=== PATIENT | male | born 1960 | race Caucasian/White ===

== ENCOUNTER 2017-06-28 11:33 | Emergency (ER) | payer MEDICAID ==
[~2017-06-28] VITALS: Ht 167.6 cm; Wt 90.0 kg
[2017-06-28] MEDS ORDERED: ASPIRIN 81 MG TABLET CHEW PO ONE (12:00)
[2017-06-28] MEDS ORDERED: ALBUTEROL/IPRATROPIUM 2.5MG/0.5MG, 3 ML NPPB SCH (12:00)
[2017-06-28] MEDS ORDERED: ASPIRIN 81 MG TABLET CHEW ONE (12:01)
[2017-06-28 12:11] LABS: HEMOGLOBIN 16.9 g/dL (13.7-18.0); WHITE BLOOD COUNT 7.9 x10^3/uL (3.4-10)
[2017-06-28] MEDS ORDERED: ALBUTEROL SULFATE 2.5MG/0.5ML ONE (12:14)
[2017-06-28] MEDS ORDERED: ALBUTEROL/IPRATROPIUM 2.5MG/0.5MG, 3 ML ONE (12:15)
[2017-06-28 12:23] LABS: BLOOD UREA NITROGEN 9 mg/dL (7-18)
[2017-06-28 12:27] LABS: IS PT STATUS REG ER OR PRE ER? YES
[2017-06-28] MEDS ORDERED: ALBU8.5H8 INH (12:42)
[2017-06-28] MEDS ORDERED: LISI5TAB7 PO (12:42)
[2017-06-28] MEDS ORDERED: TIOT18CA INH (12:42)
[2017-06-28] MEDS ORDERED: BUDE10.2 INH (12:42)
[2017-06-28] MEDS ORDERED: IPRA4AER INH (12:42)
[2017-06-28] MEDS ORDERED: NITR0.4T28 SL (12:42)
[2017-06-28] MEDS ORDERED: ASPI-496 PO (12:42)
[2017-06-28] MEDS ORDERED: ATOR40TA78 PO (12:42)
[2017-06-28] MEDS ORDERED: AMIT75TA PO (12:42)
[2017-06-28 13:21] VITALS: BP 160/50
== END 2017-06-28 14:42 | disposition home or self-care (01) ==
LOC: ED 11:58
DX: J44.1 Chronic obstructive pulmonary disease with (acute) exacerbation (principal); Z87.891 Personal history of nicotine dependence; I10 Essential (primary) hypertension; Z99.81 Dependence on supplemental oxygen; E78.00 Pure hypercholesterolemia, unspecified; I25.10 Atherosclerotic heart disease of native coronary artery without angina pectoris
CPT/HCPCS: 36415; 71010; 80048; 82040; 83880; 84484; 85025; 93005; 94640; 99285; J7512; J7620

== ENCOUNTER 2018-08-23 16:22 | Inpatient (IN) | payer MEDICARE, MEDICAID ==
[~2018-08-23] VITALS: Ht 167.6 cm; Wt 91.1 kg
[~2018-08-23 16:22] MED LIST: ALBU8.5H8 INH; AMIT75TA PO; ASPI-496 PO; ATOR40TA78 PO; BUDE10.2 INH; IPRA4AER INH; LISI5TAB7 PO; NITR0.4T28 SL; TIOT18CA INH
[2018-08-23] MEDS ORDERED: methylPREDNISolone SOD SUCC 125 MG/2 ML ONE (16:25)
[2018-08-23] MEDS ORDERED: LORazepam 2 MG/ML, 1ML ONE ×2 (16:28→17:35)
[2018-08-23] MEDS ORDERED: SODIUM CHLORIDE FLUSH 10ML SYR IVF ONE (16:30)
[2018-08-23] MEDS ORDERED: PLEASE ENTER HEIGHT AND WEIGHT MC SCH (16:30)
[2018-08-23] MEDS ORDERED: methylPREDNISolone SOD SUCC 125 MG/2 ML IVP ONE (16:30)
[2018-08-23] MEDS ORDERED: LORazepam 2 MG/ML, 1ML IVP ONE (16:30)
[2018-08-23] MEDS ORDERED: ALBUTEROL/IPRATROPIUM 2.5MG/0.5MG, 3 ML ONE (16:44)
[2018-08-23] MEDS ORDERED: ALBUTEROL SULFATE 2.5MG/0.5ML ONE (16:44)
[2018-08-23] MEDS ORDERED: ALBUTEROL SULFATE 2.5 MG/3 ML NPPB ONE (16:45)
[2018-08-23] MEDS ORDERED: ALBUTEROL/IPRATROPIUM 2.5MG/0.5MG, 3 ML NEB ONE (16:45)
[2018-08-23 17:17] LABS: MEAN CORPUSCULAR HEMOGLOBIN 30.4 pg (27.5-34.5); MEAN CORPUSCULAR HGB CONC 32.9 g/dL (33.2-36.2); MEAN CORPUSCULAR VOLUME 92.5 fL (81-97); PLATELET COUNT 421 x10^3/uL (130-400); RED BLOOD COUNT 5.26 x10^6/uL (4.38-5.82); RED CELL DISTRIBUTION WIDTH 15.7 % (9.4-14.8)
[2018-08-23 17:24] LABS: ALANINE AMINOTRANSFERASE 78 U/L (12-78); ALBUMIN 3.8 g/dL (3.4-5.0); ANION GAP 9 mmol/L (5-15); CALCIUM 8.7 mg/dL (8.5-10.1); CHLORIDE 98 mmol/L (98-107); CREATININE 1.41 mg/dL (0.7-1.3)
[2018-08-23 17:28] LABS: ALKALINE PHOSPHATASE 49 U/L (45-117); BILIRUBIN,TOTAL 0.3 mg/dL (0.2-1.0); TOTAL PROTEIN 7.1 g/dL (6.4-8.2); TROPONIN I < 0.015 ng/mL (0.000-0.045)
[2018-08-23] MEDS ORDERED: DOXYCYCLINE 100 MG in DEXTROSE 5% 250 ML IV ONE (17:30)
[2018-08-23 17:36] LABS: MD YES
[2018-08-23 17:39] LABS: LYMPH#(MANUAL) 2.17 x10^3/uL (1-3.4); LYMPHS% (MANUAL) 11 % (22-44); MONOS#(MANUAL) 1.18 x10^3/uL (0.3-2.7); MONOS% (MANUAL) 6 % (2-9); SEG#(MANUAL) 16.35 x10^3/uL (1.8-6.8); SEGS% (MANUAL) 83 % (42-75)
[2018-08-23 17:40] LABS: <PLATELET ESTIMATE> INCREASED; <PLT MORPHOLOGY> NORMAL PLT MORPH; <RBC MORPHOLOGY> NORMAL
[2018-08-23] MEDS ORDERED: LORazepam 2 MG/ML, 1ML IVPush ONE (18:00)
[2018-08-23] MEDS ORDERED: SODIUM CHLORIDE 0.9% 1,000 ML IV SCH (19:42)
[2018-08-23] MEDS ORDERED: ONDANSETRON ODT 4 MG PO PRN (20:00)
[2018-08-23] MEDS ORDERED: POLYETHYLENE GLYCOL 17 GM PACKET PO PRN (20:00)
[2018-08-23] MEDS ORDERED: ALBUTEROL SULFATE 2.5 MG/3 ML NPPB PRN (20:00)
[2018-08-23] MEDS ORDERED: GABAPENTIN 300 MG CAPSULE PO PRN (20:00)
[2018-08-23] MEDS ORDERED: BISACODYL 10 MG SUPP PR PRN (20:00)
[2018-08-23] MEDS ORDERED: ONDANSETRON 2MG/ML, 2ML IVPush PRN (20:00)
[2018-08-23] MEDS ORDERED: ACETAMINOPHEN 325 MG TABLET PO PRN (20:00)
[2018-08-23] MEDS ORDERED: NITROGLYCERIN 0.4 MG BOTTLE (25 TABS) SL PRN (20:00)
[2018-08-23] MEDS ORDERED: hydrALAzine 20 MG/ML, 1ML IVPush PRN (20:00)
[2018-08-23] MEDS ORDERED: DOCUSATE 100 MG CAPSULE PO PRN (20:00)
[2018-08-23] MEDS ORDERED: LABETALOL 5MG/ML, 20ML IVPush PRN (20:00)
[2018-08-23] MEDS ORDERED: PROMETHAZINE 25 MG/ML, 1ML IM PRN (20:00)
[2018-08-23] MEDS ORDERED: methylPREDNISolone SOD SUCC 125 MG/2 ML IVPush SCH (20:00)
[2018-08-23 20:15] LABS: FREE T4 (FREE THYROXINE) 0.97 ng/dL (0.76-1.46); THYROID STIMULATING HORMONE 1.27 mIU/L (0.358-3.740)
[2018-08-23 20:27] LABS: HEMOGLOBIN A1C 6.9 % (4.2-6.3)
[2018-08-23] MEDS ORDERED: AMITRIPTYLINE 50 MG TABLET ONE (20:51)
[2018-08-23] MEDS ORDERED: AMITRIPTYLINE 25 MG TABLET ONE (20:52)
[2018-08-23] MEDS ORDERED: TEMPLATE NON-FORMULARY MED. (Ipratropium/Albuterol Sulfate (Combivent Respimat Inhal Spray INH SCH (21:00)
[2018-08-23] MEDS ORDERED: ALBUTEROL/IPRATROPIUM 2.5MG/0.5MG, 3 ML NPPB SCH (21:00)
[2018-08-23] MEDS: AMITRIPTYLINE 75 MG TABLET PO SCH (21:00)
[2018-08-23] MEDS ORDERED: BUDESONIDE 0.5 MG/2 ML INHA NPPB SCH (21:00)
[2018-08-23] MEDS: HEPARIN 5,000 UNITS/ML, 1ML SQ SCH (21:05)
[2018-08-23] MEDS: FAMOTIDINE 20 MG/2 ML IVPush SCH (21:07)
[2018-08-23] MEDS: ATORVASTATIN 40 MG TABLET PO SCH (21:10)
[2018-08-23 21:54] VITALS: BP 154/77
[2018-08-23] MEDS: ALBUTEROL/IPRATROPIUM 2.5MG/0.5MG, 3 ML NPPB SCH (23:00)
[2018-08-23] MEDS ORDERED: ALBUTEROL/IPRATROPIUM 2.5MG/0.5MG, 3 ML NPPB PRN (23:00)
[2018-08-23 23:32] LABS: MICROSCOPIC NOT IND
[2018-08-23 23:36] LABS: CULTURE INDICATED? NO
[2018-08-23] MEDS: methylPREDNISolone SOD SUCC 40 MG/ML IV SCH (23:41)
[2018-08-24] MEDS: ALBUTEROL/IPRATROPIUM 2.5MG/0.5MG, 3 ML NPPB SCH ×6 (02:09→23:35)
[2018-08-24] MEDS: DOXYCYCLINE 100 MG in DEXTROSE 5% 250 ML IV SCH ×2 (04:10→17:56)
[2018-08-24 04:27] LABS: BASOPHILS # (AUTO) 0.17 x10^3/uL (0-0.1); BASOPHILS % (AUTO) 1 % (0-1); EOSINOPHILS # (AUTO) 0.02 x10^3/uL (0-0.4); EOSINOPHILS % (AUTO) 0 % (1-7); LYMPHOCYTES # (AUTO) 0.52 x10^3/uL (1-3.4); LYMPHOCYTES % (AUTO) 4 % (22-44); MD NO; MEAN CORPUSCULAR HEMOGLOBIN 30.7 pg (27.5-34.5); MEAN CORPUSCULAR HGB CONC 33.2 g/dL (33.2-36.2); MEAN CORPUSCULAR VOLUME 92.5 fL (81-97); MEAN PLATELET VOLUME 8.5 fL (7.4-10.4); MONOCYTES # (AUTO) 0.11 x10^3/uL (0.2-0.8); MONOCYTES % (AUTO) 1 % (2-9); NEUTROPHILS # (AUTO) 12.67 x10^3/uL (1.8-6.8); NEUTROPHILS % (AUTO) 94 % (42-75); PLATELET COUNT 359 x10^3/uL (130-400); RED BLOOD COUNT 4.98 x10^6/uL (4.38-5.82); RED CELL DISTRIBUTION WIDTH 15.5 % (9.4-14.8)
[2018-08-24 04:32] LABS: ALBUMIN 2.9 g/dL (3.4-5.0); ANION GAP 7 mmol/L (5-15); CALCIUM 8.1 mg/dL (8.5-10.1); CHLORIDE 104 mmol/L (98-107)
[2018-08-24 04:37] LABS: ALANINE AMINOTRANSFERASE 61 U/L (12-78); ALKALINE PHOSPHATASE 41 U/L (45-117); BILIRUBIN,TOTAL 0.5 mg/dL (0.2-1.0); CHOL/HDL RATIO 3.2; CHOLESTEROL, TOTAL 167 mg/dL (140-239); CREATININE 0.94 mg/dL (0.7-1.3); HDL CHOL % 32 % (26-37); HDL CHOLESTEROL (DIRECT) 53 mg/dL (40-60); LDL CHOLESTEROL,CALCULATED 91 mg/dL (54-169); LDL/HDL RATIO 1.7 (0.5-3.0); TRIGLYCERIDES 117 mg/dL (50-200); VLDL CHOLESTEROL 23 mg/dL (0-25)
[2018-08-24 04:49] VITALS: BP 114/69
[2018-08-24] MEDS: HEPARIN 5,000 UNITS/ML, 1ML SQ SCH (05:02)
[2018-08-24] MEDS: methylPREDNISolone SOD SUCC 40 MG/ML IV SCH (05:02)
[2018-08-24] MEDS: FLUTICASONE/VILANTEROL 200-25MCG/INH INH SCH (08:48)
[2018-08-24] MEDS: FAMOTIDINE 20 MG/2 ML IVPush SCH (08:51)
[2018-08-24] MEDS: LISINOPRIL 5 MG TABLET PO SCH (08:51)
[2018-08-24] MEDS: ASPIRIN 81 MG TABLET CHEW PO SCH (08:51)
[2018-08-24] MEDS ORDERED: TEMPLATE NON-FORMULARY MED. (Budesonide/Formoterol Fumarate (Symbicort 160-4.5 Mcg Inhaler INH SCH (09:00)
[2018-08-24 10:19] VITALS: BP 125/64
[2018-08-24 12:12] LABS: RAPID INFLUENZA A Negative (Negative); RAPID INFLUENZA B Negative (Negative)
[2018-08-24] MEDS: ENOXAPARIN 40 MG/0.4 ML SQ SCH (13:06)
[2018-08-24 20:00] VITALS: BP 105/63
[2018-08-24] MEDS ORDERED: AMITRIPTYLINE 50 MG TABLET ONE (20:18)
[2018-08-24] MEDS: ATORVASTATIN 40 MG TABLET PO SCH (20:23)
[2018-08-24] MEDS: FAMOTIDINE 20 MG TABLET PO SCH (20:23)
[2018-08-24] MEDS: AMITRIPTYLINE 75 MG TABLET PO SCH (20:24)
[2018-08-25 02:00] VITALS: BP 106/63
[2018-08-25] MEDS: ALBUTEROL/IPRATROPIUM 2.5MG/0.5MG, 3 ML NPPB SCH ×6 (03:00→22:21)
[2018-08-25] MEDS: DOXYCYCLINE 100 MG in DEXTROSE 5% 250 ML IV SCH ×2 (05:06→16:57)
[2018-08-25 06:11] LABS: CHLORIDE 103 mmol/L (98-107)
[2018-08-25 06:13] LABS: BASOPHILS # (AUTO) 0.14 x10^3/uL (0-0.1); BASOPHILS % (AUTO) 1 % (0-1); EOSINOPHILS # (AUTO) 0.08 x10^3/uL (0-0.4); EOSINOPHILS % (AUTO) 1 % (1-7); LYMPHOCYTES # (AUTO) 2.48 x10^3/uL (1-3.4); LYMPHOCYTES % (AUTO) 18 % (22-44); MD NO; MEAN CORPUSCULAR HEMOGLOBIN 30.4 pg (27.5-34.5); MEAN CORPUSCULAR HGB CONC 32.5 g/dL (33.2-36.2); MEAN CORPUSCULAR VOLUME 93.6 fL (81-97); MEAN PLATELET VOLUME 8.9 fL (7.4-10.4); MONOCYTES # (AUTO) 0.71 x10^3/uL (0.2-0.8); MONOCYTES % (AUTO) 5 % (2-9); NEUTROPHILS # (AUTO) 10.06 x10^3/uL (1.8-6.8); NEUTROPHILS % (AUTO) 75 % (42-75); PLATELET COUNT 271 x10^3/uL (130-400); RED BLOOD COUNT 4.99 x10^6/uL (4.38-5.82); RED CELL DISTRIBUTION WIDTH 15.7 % (9.4-14.8)
[2018-08-25 06:18] LABS: ANION GAP 8 mmol/L (5-15)
[2018-08-25 06:59] VITALS: BP 129/81
[2018-08-25] MEDS: FAMOTIDINE 20 MG TABLET PO SCH ×2 (09:28→19:55)
[2018-08-25] MEDS: FLUTICASONE/VILANTEROL 200-25MCG/INH INH SCH (09:28)
[2018-08-25] MEDS: LISINOPRIL 5 MG TABLET PO SCH (09:28)
[2018-08-25] MEDS: ASPIRIN 81 MG TABLET CHEW PO SCH (09:28)
[2018-08-25 12:21] VITALS: BP 107/61
[2018-08-25] MEDS: ENOXAPARIN 40 MG/0.4 ML SQ SCH (13:54)
[2018-08-25] MEDS: ATORVASTATIN 40 MG TABLET PO SCH (19:55)
[2018-08-25] MEDS: AMITRIPTYLINE 75 MG TABLET PO SCH (19:55)
[2018-08-25 20:00] VITALS: BP 106/64
[2018-08-26 01:40] VITALS: BP 118/70
[2018-08-26] MEDS: ALBUTEROL/IPRATROPIUM 2.5MG/0.5MG, 3 ML NPPB SCH ×2 (02:27→06:49)
[2018-08-26 05:21] LABS: CHLORIDE 104 mmol/L (98-107)
[2018-08-26 05:26] LABS: ANION GAP 5 mmol/L (5-15); CALCIUM 8.2 mg/dL (8.5-10.1); CREATININE 0.78 mg/dL (0.7-1.3)
[2018-08-26] MEDS: DOXYCYCLINE 100 MG in DEXTROSE 5% 250 ML IV SCH (05:30)
[2018-08-26 06:00] LABS: BASOPHILS # (AUTO) 0.15 x10^3/uL (0-0.1); BASOPHILS % (AUTO) 1 % (0-1); EOSINOPHILS # (AUTO) 0.05 x10^3/uL (0-0.4); EOSINOPHILS % (AUTO) 0 % (1-7); LYMPHOCYTES % (AUTO) 16 % (22-44); MD NO; MEAN CORPUSCULAR HEMOGLOBIN 30.8 pg (27.5-34.5); MEAN CORPUSCULAR VOLUME 93.4 fL (81-97); MEAN PLATELET VOLUME 8.2 fL (7.4-10.4); MONOCYTES # (AUTO) 0.73 x10^3/uL (0.2-0.8); MONOCYTES % (AUTO) 6 % (2-9); NEUTROPHILS # (AUTO) 9.69 x10^3/uL (1.8-6.8); NEUTROPHILS % (AUTO) 77 % (42-75); PLATELET COUNT 264 x10^3/uL (130-400); RED BLOOD COUNT 4.56 x10^6/uL (4.38-5.82); RED CELL DISTRIBUTION WIDTH 16.3 % (9.4-14.8)
[2018-08-26 07:28] VITALS: BP 126/80
[2018-08-26] MEDS: FAMOTIDINE 20 MG TABLET PO SCH (08:39)
[2018-08-26] MEDS: ASPIRIN 81 MG TABLET CHEW PO SCH (08:39)
[2018-08-26] MEDS: LISINOPRIL 5 MG TABLET PO SCH (08:39)
[2018-08-26] MEDS: FLUTICASONE/VILANTEROL 200-25MCG/INH INH SCH (09:00)
[2018-08-26] MEDS ORDERED: FLUT1BLS INH (10:24)
[2018-08-26] MEDS ORDERED: DOXY100T PO (10:24)
[2018-08-26] MEDS ORDERED: CEFD300C37 PO (10:24)
[2018-08-26] MEDS ORDERED: PRED5TAB PO (10:24)
[2018-08-26] MEDS: ENOXAPARIN 40 MG/0.4 ML SQ SCH (13:41)
== END 2018-08-26 15:00 | DRG 682 ==
LOC: ED 17:16 → EDIP 17:27 → CCU 19:25 → 4EST 08-24 09:51
PROVIDERS: ADMIT Internal Medicine; ATTEND Family Medicine
PROC: 5A09357 Assistance with Respiratory Ventilation, Less than 24 Consecutive Hours, Continuous Positive Airway Pressure (ICD-10-PCS; principal; 2018-08-23)
DX: N17.0 Acute kidney failure with tubular necrosis (principal); J96.20 Acute and chronic respiratory failure, unspecified whether with hypoxia or hypercapnia; J18.9 Pneumonia, unspecified organism; J44.1 Chronic obstructive pulmonary disease with (acute) exacerbation; J44.0 Chronic obstructive pulmonary disease with (acute) lower respiratory infection; E78.00 Pure hypercholesterolemia, unspecified; E78.5 Hyperlipidemia, unspecified; F12.10 Cannabis abuse, uncomplicated; F17.210 Nicotine dependence, cigarettes, uncomplicated; I11.9 Hypertensive heart disease without heart failure; I25.10 Atherosclerotic heart disease of native coronary artery without angina pectoris; Z95.5 Presence of coronary angioplasty implant and graft; Z99.81 Dependence on supplemental oxygen; Z79.899 Other long term (current) drug therapy; Z79.82 Long term (current) use of aspirin; Z71.6 Tobacco abuse counseling
CPT/HCPCS: 36415; 36600; 71045; 80048; 80053; 80061; 81003; 82803; 83036; 83735; 83880; 84100; 84439; 84443; 84484; 85025; 87070; 87081; 87205; 87400; 93005; 93306; 94640; 94660; 96365; 96375; 96376; 99291; G0378; J1644; J1650; J7060; J7620; J2060; J2920; J2930; J7030; J7512; S0028

== ENCOUNTER 2018-09-13 14:24 | Inpatient (IN) | payer MEDICARE, MEDICAID ==
[~2018-09-13] VITALS: Ht 180.3 cm; Wt 85.6 kg
[~2018-09-13 14:24] MED LIST changes: +CEFD300C37 PO; +DOXY100T PO; +FLUT1BLS INH; +PRED5TAB PO
[2018-09-13] MEDS ORDERED: MAGNESIUM SULFATE PMX 2GM/50ML 50 ML IV ONE (15:00)
[2018-09-13] MEDS ORDERED: LORazepam 2 MG/ML, 1ML IVP ONE (15:00)
[2018-09-13] MEDS ORDERED: methylPREDNISolone SOD SUCC 125 MG/2 ML IVP ONE (15:00)
[2018-09-13] MEDS ORDERED: ALBUTEROL SULFATE 2.5 MG/3 ML NPPB SCH (15:00)
[2018-09-13] MEDS ORDERED: SODIUM CHLORIDE FLUSH 10ML SYR IVF ONE (15:00)
[2018-09-13 15:22] LABS: BASOPHILS # (AUTO) 0.02 x10^3/uL (0-0.1); BASOPHILS % (AUTO) 0 % (0-1); EOSINOPHILS # (AUTO) 0.19 x10^3/uL (0-0.4); EOSINOPHILS % (AUTO) 2 % (1-7); LYMPHOCYTES # (AUTO) 1.22 x10^3/uL (1-3.4); LYMPHOCYTES % (AUTO) 11 % (22-44); MD NO; MEAN CORPUSCULAR HGB CONC 33.5 g/dL (33.2-36.2); MEAN CORPUSCULAR VOLUME 92.5 fL (81-97); MEAN PLATELET VOLUME 8.7 fL (7.4-10.4); MONOCYTES # (AUTO) 0.63 x10^3/uL (0.2-0.8); MONOCYTES % (AUTO) 6 % (2-9); NEUTROPHILS # (AUTO) 8.95 x10^3/uL (1.8-6.8); NEUTROPHILS % (AUTO) 81 % (42-75); PLATELET COUNT 371 x10^3/uL (130-400); RED BLOOD COUNT 4.52 x10^6/uL (4.38-5.82); RED CELL DISTRIBUTION WIDTH 14.8 % (9.4-14.8)
[2018-09-13 15:35] LABS: ALBUMIN 2.9 g/dL (3.4-5.0); ANION GAP 8 mmol/L (5-15); CALCIUM 8.3 mg/dL (8.5-10.1); CHLORIDE 105 mmol/L (98-107)
[2018-09-13 15:39] LABS: TROPONIN I < 0.015 ng/mL (0.000-0.045)
[2018-09-13] MEDS ORDERED: SODIUM CHLORIDE 0.9% 1,000 ML IV SCH (15:45)
[2018-09-13] MEDS ORDERED: (Ipratropium/Albuterol Sulfate (Combivent Respimat Inhal Spray INH SCH (16:00)
[2018-09-13] MEDS ORDERED: ONDANSETRON ODT 4 MG PO PRN (16:00)
[2018-09-13] MEDS ORDERED: ENALAPRILAT 1.25 MG/ML, 2ML IVPush PRN (16:00)
[2018-09-13] MEDS ORDERED: LABETALOL 5MG/ML, 20ML IVPush PRN (16:00)
[2018-09-13] MEDS ORDERED: BISACODYL 10 MG SUPP PR PRN (16:00)
[2018-09-13] MEDS: methylPREDNISolone SOD SUCC 125 MG/2 ML IVPush SCH ×2 (16:00→21:39)
[2018-09-13] MEDS ORDERED: ONDANSETRON 2MG/ML, 2ML IVPush PRN (16:00)
[2018-09-13] MEDS ORDERED: ACETAMINOPHEN 325 MG TABLET PO PRN (16:00)
[2018-09-13] MEDS ORDERED: ONDANSETRON 2MG/ML, 2ML ONE (16:15)
[2018-09-13] MEDS ORDERED: MORPHINE SULFATE 4 MG/ML, 1ML ONE ×2 (16:15→16:57)
[2018-09-13] MEDS: MORPHINE SULFATE 4 MG/ML, 1ML IVPush PRN ×2 (16:17→17:00)
[2018-09-13] MEDS ORDERED: ONDANSETRON 2MG/ML, 2ML IVPush ONE (16:30)
[2018-09-13] MEDS: DOXYCYCLINE 100 MG in DEXTROSE 5% 250 ML IV SCH (17:00)
[2018-09-13] MEDS: ENOXAPARIN 40 MG/0.4 ML SQ SCH (17:42)
[2018-09-13] MEDS: FAMOTIDINE 20 MG TABLET PO SCH (20:06)
[2018-09-13] MEDS: ATORVASTATIN 40 MG TABLET PO SCH (20:06)
[2018-09-13] MEDS: AMITRIPTYLINE 75 MG TABLET PO SCH (20:07)
[2018-09-13] MEDS: ALBUTEROL/IPRATROPIUM 2.5MG/0.5MG, 3 ML NPPB SCH (20:31)
[2018-09-13 22:00] VITALS: BP 96/56
[2018-09-14] MEDS: OXYcodone IR 5MG TABLET PO PRN ×3 (00:07→12:25)
[2018-09-14] MEDS: DOXYCYCLINE 100 MG in DEXTROSE 5% 250 ML IV SCH ×2 (03:41→16:39)
[2018-09-14] MEDS: methylPREDNISolone SOD SUCC 125 MG/2 ML IVPush SCH ×4 (03:47→21:49)
[2018-09-14 04:24] LABS: MEAN CORPUSCULAR HEMOGLOBIN 31.4 pg (27.5-34.5); MEAN CORPUSCULAR HGB CONC 33.7 g/dL (33.2-36.2); MEAN CORPUSCULAR VOLUME 93.1 fL (81-97); MEAN PLATELET VOLUME 9.1 fL (7.4-10.4); PLATELET COUNT 347 x10^3/uL (130-400); RED BLOOD COUNT 4.03 x10^6/uL (4.38-5.82)
[2018-09-14 04:33] LABS: ALANINE AMINOTRANSFERASE 50 U/L (12-78); ALBUMIN 2.4 g/dL (3.4-5.0); ANION GAP 6 mmol/L (5-15); CALCIUM 7.8 mg/dL (8.5-10.1); CHLORIDE 106 mmol/L (98-107); CREATININE 0.77 mg/dL (0.7-1.3)
[2018-09-14 04:35] LABS: ALKALINE PHOSPHATASE 66 U/L (45-117); BILIRUBIN,TOTAL 0.2 mg/dL (0.2-1.0); TOTAL PROTEIN 6.2 g/dL (6.4-8.2)
[2018-09-14 04:51] LABS: BASOPHILS # (AUTO) 0.03 x10^3/uL (0-0.1); BASOPHILS % (AUTO) 0 % (0-1); EOSINOPHILS % (AUTO) 0 % (1-7); LYMPHOCYTES % (AUTO) 4 % (22-44); MD SCAN; MONOCYTES # (AUTO) 0.09 x10^3/uL (0.2-0.8); MONOCYTES % (AUTO) 1 % (2-9); NEUTROPHILS # (AUTO) 6.47 x10^3/uL (1.8-6.8); NEUTROPHILS % (AUTO) 94 % (42-75)
[2018-09-14] MEDS: ALBUTEROL/IPRATROPIUM 2.5MG/0.5MG, 3 ML NPPB SCH ×5 (06:00→19:28)
[2018-09-14 07:45] VITALS: BP 110/74
[2018-09-14] MEDS ORDERED: FLUTICASONE/VILANTEROL 100-25MCG/INH INH SCH (09:00)
[2018-09-14] MEDS ORDERED: IPRATROPIUM 0.5 MG/2.5 ML INHA NPPB SCH (09:00)
[2018-09-14] MEDS: SENNA/DOCUSATE TABLET PO SCH (09:30)
[2018-09-14] MEDS: ASPIRIN 81 MG TABLET CHEW PO SCH (09:30)
[2018-09-14] MEDS: LISINOPRIL 5 MG TABLET PO SCH (09:31)
[2018-09-14] MEDS: FAMOTIDINE 20 MG TABLET PO SCH ×2 (09:31→21:48)
[2018-09-14] MEDS: FLUTICASONE/VILANTEROL 200-25MCG/INH INH SCH (10:33)
[2018-09-14 12:15] VITALS: BP 103/64
[2018-09-14] MEDS: ENOXAPARIN 40 MG/0.4 ML SQ SCH (16:39)
[2018-09-14 19:25] VITALS: BP 98/65
[2018-09-14] MEDS: AMITRIPTYLINE 75 MG TABLET PO SCH (21:48)
[2018-09-14] MEDS: ATORVASTATIN 40 MG TABLET PO SCH (21:48)
[2018-09-15] MEDS: OXYcodone IR 5MG TABLET PO PRN ×5 (00:06→21:19)
[2018-09-15 02:59] VITALS: BP 94/58
[2018-09-15] MEDS: methylPREDNISolone SOD SUCC 125 MG/2 ML IVPush SCH ×4 (04:24→21:10)
[2018-09-15] MEDS: DOXYCYCLINE 100MG TABLET PO SCH ×2 (04:24→15:45)
[2018-09-15] MEDS: ALBUTEROL/IPRATROPIUM 2.5MG/0.5MG, 3 ML NPPB SCH ×4 (07:05→19:35)
[2018-09-15 07:12] VITALS: BP 108/68
[2018-09-15] MEDS: LISINOPRIL 5 MG TABLET PO SCH (09:22)
[2018-09-15] MEDS: FAMOTIDINE 20 MG TABLET PO SCH ×2 (09:22→21:10)
[2018-09-15] MEDS: ASPIRIN 81 MG TABLET CHEW PO SCH (09:22)
[2018-09-15] MEDS: SENNA/DOCUSATE TABLET PO SCH (09:23)
[2018-09-15] MEDS: FLUTICASONE/VILANTEROL 200-25MCG/INH INH SCH (09:26)
[2018-09-15 13:05] VITALS: BP 137/78
[2018-09-15] MEDS: ENOXAPARIN 40 MG/0.4 ML SQ SCH (15:45)
[2018-09-15 20:00] VITALS: BP 93/50
[2018-09-15] MEDS: AMITRIPTYLINE 75 MG TABLET PO SCH (21:10)
[2018-09-15] MEDS: ATORVASTATIN 40 MG TABLET PO SCH (21:10)
[2018-09-15] MEDS: POLYETHYLENE GLYCOL 17 GM PACKET PO PRN (21:19)
[2018-09-16 01:45] VITALS: BP 112/82
[2018-09-16] MEDS: methylPREDNISolone SOD SUCC 125 MG/2 ML IVPush SCH ×4 (03:58→21:40)
[2018-09-16] MEDS: DOXYCYCLINE 100MG TABLET PO SCH ×2 (03:58→15:53)
[2018-09-16] MEDS: OXYcodone IR 5MG TABLET PO PRN ×4 (04:06→21:39)
[2018-09-16] MEDS: ALBUTEROL/IPRATROPIUM 2.5MG/0.5MG, 3 ML NPPB SCH ×5 (06:59→22:00)
[2018-09-16 07:19] VITALS: BP 108/62
[2018-09-16] MEDS: SENNA/DOCUSATE TABLET PO SCH (08:48)
[2018-09-16] MEDS: FAMOTIDINE 20 MG TABLET PO SCH ×2 (08:48→21:40)
[2018-09-16] MEDS: FLUTICASONE/VILANTEROL 200-25MCG/INH INH SCH (08:48)
[2018-09-16] MEDS: LISINOPRIL 5 MG TABLET PO SCH (08:48)
[2018-09-16] MEDS: ASPIRIN 81 MG TABLET CHEW PO SCH (08:48)
[2018-09-16 13:14] VITALS: BP 120/68
[2018-09-16] MEDS: ENOXAPARIN 40 MG/0.4 ML SQ SCH (15:53)
[2018-09-16] MEDS: POLYETHYLENE GLYCOL 17 GM PACKET PO PRN (16:00)
[2018-09-16] MEDS: FUROSEMIDE 40 MG/4 ML IV SCH (16:34)
[2018-09-16 20:00] VITALS: BP 119/61
[2018-09-16] MEDS: AMITRIPTYLINE 75 MG TABLET PO SCH (21:39)
[2018-09-16] MEDS: ATORVASTATIN 40 MG TABLET PO SCH (21:40)
[2018-09-17 02:00] VITALS: BP 112/64
[2018-09-17] MEDS: methylPREDNISolone SOD SUCC 125 MG/2 ML IVPush SCH ×5 (04:27→21:59)
[2018-09-17] MEDS: OXYcodone IR 5MG TABLET PO PRN ×3 (04:27→21:59)
[2018-09-17] MEDS: DOXYCYCLINE 100MG TABLET PO SCH (04:27)
[2018-09-17 07:36] VITALS: BP 121/68
[2018-09-17] MEDS: FUROSEMIDE 40 MG/4 ML IV SCH (08:14)
[2018-09-17] MEDS: SENNA/DOCUSATE TABLET PO SCH (08:52)
[2018-09-17] MEDS: ASPIRIN 81 MG TABLET CHEW PO SCH (08:53)
[2018-09-17] MEDS: FAMOTIDINE 20 MG TABLET PO SCH ×2 (08:53→21:59)
[2018-09-17] MEDS: LISINOPRIL 5 MG TABLET PO SCH (08:54)
[2018-09-17] MEDS: ALBUTEROL/IPRATROPIUM 2.5MG/0.5MG, 3 ML NPPB SCH ×5 (08:55→22:00)
[2018-09-17] MEDS: FLUTICASONE/VILANTEROL 200-25MCG/INH INH SCH (08:56)
[2018-09-17] MEDS: POLYETHYLENE GLYCOL 17 GM PACKET PO PRN (16:09)
[2018-09-17] MEDS: ENOXAPARIN 40 MG/0.4 ML SQ SCH (16:09)
[2018-09-17 20:00] VITALS: BP 102/61
[2018-09-17] MEDS: ATORVASTATIN 40 MG TABLET PO SCH (21:59)
[2018-09-17] MEDS: AMITRIPTYLINE 75 MG TABLET PO SCH (21:59)
[2018-09-18 02:00] VITALS: BP 127/78
[2018-09-18] MEDS: methylPREDNISolone SOD SUCC 125 MG/2 ML IVPush SCH ×3 (05:02→19:15)
[2018-09-18] MEDS: ALBUTEROL/IPRATROPIUM 2.5MG/0.5MG, 3 ML NPPB SCH ×5 (06:00→20:05)
[2018-09-18 07:45] VITALS: BP 102/68
[2018-09-18] MEDS: LISINOPRIL 5 MG TABLET PO SCH (09:00)
[2018-09-18] MEDS: FLUTICASONE/VILANTEROL 200-25MCG/INH INH SCH (11:59)
[2018-09-18] MEDS: FAMOTIDINE 20 MG TABLET PO SCH ×2 (11:59→19:15)
[2018-09-18] MEDS: SENNA/DOCUSATE TABLET PO SCH (12:00)
[2018-09-18] MEDS: AZITHROMYCIN 500 MG TABLET PO SCH (12:00)
[2018-09-18] MEDS: ASPIRIN 81 MG TABLET CHEW PO SCH (12:01)
[2018-09-18 13:41] VITALS: BP 113/69
[2018-09-18] MEDS: ENOXAPARIN 40 MG/0.4 ML SQ SCH (16:00)
[2018-09-18] MEDS: ATORVASTATIN 40 MG TABLET PO SCH (19:15)
[2018-09-18] MEDS: AMITRIPTYLINE 75 MG TABLET PO SCH (19:15)
[2018-09-18 20:00] VITALS: BP 112/69
[2018-09-19] MEDS: methylPREDNISolone SOD SUCC 125 MG/2 ML IVPush SCH ×2 (00:48→09:03)
[2018-09-19] MEDS: POLYETHYLENE GLYCOL 17 GM PACKET PO PRN ×2 (01:01→09:05)
[2018-09-19 01:06] VITALS: BP 121/73
[2018-09-19] MEDS: ALBUTEROL/IPRATROPIUM 2.5MG/0.5MG, 3 ML NPPB SCH ×3 (07:35→14:00)
[2018-09-19 07:42] VITALS: BP 126/75
[2018-09-19] MEDS: LISINOPRIL 5 MG TABLET PO SCH (09:01)
[2018-09-19] MEDS: FLUTICASONE/VILANTEROL 200-25MCG/INH INH SCH (09:02)
[2018-09-19] MEDS: LORazepam 2 MG/ML, 1ML IVPush PRN ×2 (09:03→13:48)
[2018-09-19] MEDS: ASPIRIN 81 MG TABLET CHEW PO SCH (09:03)
[2018-09-19] MEDS: FAMOTIDINE 20 MG TABLET PO SCH (09:03)
[2018-09-19] MEDS: AZITHROMYCIN 500 MG TABLET PO SCH (09:03)
[2018-09-19] MEDS: SENNA/DOCUSATE TABLET PO SCH (09:06)
[2018-09-19] MEDS ORDERED: methylPREDNISolone SOD SUCC 125 MG/2 ML IVPush SCH (10:30)
[2018-09-19] MEDS ORDERED: SERTRALINE 50MG TABLET PO SCH (12:00)
[2018-09-19 13:07] VITALS: BP 109/65
[2018-09-19] MEDS ORDERED: ONDA4TAB13 PO (15:41)
[2018-09-19] MEDS ORDERED: TRAM50TA2 PO (15:41)
[2018-09-19] MEDS ORDERED: IPRA3AMP30 NPPB (15:41)
[2018-09-19] MEDS ORDERED: SERT50TA5 PO (15:41)
[2018-09-19] MEDS ORDERED: AZIT500T5 PO (15:41)
[2018-09-19] MEDS ORDERED: FAMO20TA7 PO (15:41)
[2018-09-19] MEDS ORDERED: PRED10TA PO (15:41)
[2018-09-19] MEDS ORDERED: ALBUTEROL/IPRATROPIUM 2.5MG/0.5MG, 3 ML NPPB PRN (16:30)
== END 2018-09-19 16:30 | DRG 189 ==
LOC: ED 15:52 → EDIP 15:55 → ICU 18:21 → 3NE 09-14 11:28
PROVIDERS: ADMIT Internal Medicine; ATTEND Family Medicine
PROC: 5A09357 Assistance with Respiratory Ventilation, Less than 24 Consecutive Hours, Continuous Positive Airway Pressure (ICD-10-PCS; principal; 2018-09-13)
DX: J96.21 Acute and chronic respiratory failure with hypoxia (principal); J44.1 Chronic obstructive pulmonary disease with (acute) exacerbation; R45.851 Suicidal ideations; J96.22 Acute and chronic respiratory failure with hypercapnia; I10 Essential (primary) hypertension; E78.5 Hyperlipidemia, unspecified; E66.9 Obesity, unspecified; F17.200 Nicotine dependence, unspecified, uncomplicated; F32.9 Major depressive disorder, single episode, unspecified; I25.10 Atherosclerotic heart disease of native coronary artery without angina pectoris; Z59.0 Homelessness; Z82.49 Family history of ischemic heart disease and other diseases of the circulatory system; Z95.5 Presence of coronary angioplasty implant and graft; Z99.81 Dependence on supplemental oxygen; Z68.26 Body mass index [BMI] 26.0-26.9, adult
CPT/HCPCS: 36415; 36600; 71045; 80048; 80053; 82040; 82565; 82803; 83605; 84484; 85025; 87040; 87081; 93005; 94640; 99285; G0378; J1650; J1940; J2405; J7060; J7620; J2060; J2930; J3475; J7030; J7512

== ENCOUNTER 2018-09-13 14:26 | Emergency (ER) | payer MEDICARE, MEDICAID ==
[2018-09-13] MEDS ORDERED: ALBUTEROL/IPRATROPIUM 2.5MG/0.5MG, 3 ML ONE (14:30)
[2018-09-13] MEDS ORDERED: LIDOCAINE-MPF 1%, 5ML ONE (14:30)
[2018-09-13] MEDS ORDERED: LORazepam 2 MG/ML, 1ML ONE ×2 (14:39→14:55)
[2018-09-13] MEDS ORDERED: methylPREDNISolone SOD SUCC 125 MG/2 ML ONE (14:41)
== END 2018-09-13 14:29 | disposition home or self-care (01) ==
LOC: ED 14:26
DX: J44.1 Chronic obstructive pulmonary disease with (acute) exacerbation (principal); E78.00 Pure hypercholesterolemia, unspecified; I25.10 Atherosclerotic heart disease of native coronary artery without angina pectoris; I10 Essential (primary) hypertension
CPT/HCPCS: 36680; 94660; 99291

== ENCOUNTER 2018-09-19 13:57 | Inpatient (IN) | payer MEDICARE, MEDICAID ==
[~2018-09-19] VITALS: Ht 167.6 cm; Wt 86.9 kg
[2018-09-19] MEDS ORDERED: BISACODYL 10 MG SUPP PR PRN (15:00)
[2018-09-19] MEDS ORDERED: ONDANSETRON ODT 4 MG PO PRN (15:00)
[2018-09-19] MEDS ORDERED: DOCUSATE 100 MG CAPSULE PO PRN (15:00)
[2018-09-19] MEDS ORDERED: AZIT500T5 PO (15:41)
[2018-09-19] MEDS ORDERED: IPRA3AMP30 NPPB (15:41)
[2018-09-19] MEDS ORDERED: SERT50TA5 PO (15:41)
[2018-09-19] MEDS ORDERED: PRED10TA PO (15:41)
[2018-09-19] MEDS ORDERED: ONDA4TAB13 PO (15:41)
[2018-09-19] MEDS ORDERED: TRAM50TA2 PO (15:41)
[2018-09-19] MEDS ORDERED: FAMO20TA7 PO (15:41)
[2018-09-19 17:00] VITALS: BP 117/68
[2018-09-19 17:43] VITALS: BP 117/68
[2018-09-19] MEDS ORDERED: ALBUTEROL SULFATE 2.5 MG/3 ML NPPB SCH ×2 (18:00)
[2018-09-19] MEDS ORDERED: BUDESONIDE 0.5 MG/2 ML INHA NPPB SCH (18:00)
[2018-09-19] MEDS ORDERED: ALBUTEROL/IPRATROPIUM 2.5MG/0.5MG, 3 ML NPPB PRN (18:00)
[2018-09-19] MEDS: ALBUTEROL/IPRATROPIUM 2.5MG/0.5MG, 3 ML NPPB SCH (18:05)
[2018-09-19 19:39] VITALS: BP 104/68
[2018-09-19] MEDS ORDERED: AZITHROMYCIN 500 MG TABLET PO SCH (20:00)
[2018-09-19] MEDS: FAMOTIDINE 20 MG TABLET PO SCH (20:59)
[2018-09-19] MEDS: ATORVASTATIN 40 MG TABLET PO SCH (20:59)
[2018-09-19] MEDS: AMITRIPTYLINE 75 MG TABLET PO SCH (20:59)
[2018-09-20 05:59] LABS: HCT (SEDRATE) 44.8 % (39.2-51.8)
[2018-09-20] MEDS: ASPIRIN 81 MG TABLET EC PO SCH (06:28)
[2018-09-20 06:31] LABS: CHOL/HDL RATIO 2.8; LDL/HDL RATIO 1.2 (0.5-3.0); THYROID STIMULATING HORMONE 0.129 mIU/L (0.358-3.740)
[2018-09-20] MEDS: ALBUTEROL/IPRATROPIUM 2.5MG/0.5MG, 3 ML NPPB SCH ×4 (07:00→20:00)
[2018-09-20 07:21] VITALS: BP 121/77
[2018-09-20] MEDS: FAMOTIDINE 20 MG TABLET PO SCH ×2 (08:38→21:08)
[2018-09-20] MEDS: SENNA/DOCUSATE TABLET PO SCH (08:38)
[2018-09-20] MEDS: LISINOPRIL 5 MG TABLET PO SCH (08:38)
[2018-09-20] MEDS: AZITHROMYCIN 500 MG TABLET PO SCH (08:38)
[2018-09-20] MEDS ORDERED: FLUTICASONE/VILANTEROL 200-25MCG/INH INH SCH (09:00)
[2018-09-20] MEDS: ACETAMINOPHEN 325 MG TABLET PO PRN (13:32)
[2018-09-20] MEDS: METOPROLOL TARTRATE 25 MG TABLET PO SCH (17:36)
[2018-09-20 19:32] VITALS: BP 111/69
[2018-09-20] MEDS: AMITRIPTYLINE 75 MG TABLET PO SCH (21:08)
[2018-09-20] MEDS: ATORVASTATIN 40 MG TABLET PO SCH (21:08)
[2018-09-21] MEDS: ASPIRIN 81 MG TABLET EC PO SCH (06:15)
[2018-09-21] MEDS: METOPROLOL TARTRATE 25 MG TABLET PO SCH ×2 (06:16→18:07)
[2018-09-21] MEDS: ALBUTEROL/IPRATROPIUM 2.5MG/0.5MG, 3 ML NPPB SCH ×4 (07:30→19:09)
[2018-09-21 07:57] VITALS: BP 110/74
[2018-09-21] MEDS: SERTRALINE 50MG TABLET PO SCH (08:03)
[2018-09-21] MEDS: LISINOPRIL 5 MG TABLET PO SCH (08:04)
[2018-09-21] MEDS: ACETAMINOPHEN 325 MG TABLET PO PRN (08:04)
[2018-09-21] MEDS: AZITHROMYCIN 500 MG TABLET PO SCH (08:04)
[2018-09-21] MEDS: SENNA/DOCUSATE TABLET PO SCH (08:12)
[2018-09-21] MEDS: FAMOTIDINE 20 MG TABLET PO SCH ×2 (08:12→21:01)
[2018-09-21 14:08] LABS: MICROSCOPIC INDICATED
[2018-09-21 14:09] LABS: CULTURE INDICATED? NO
[2018-09-21 20:11] VITALS: BP 115/73
[2018-09-21] MEDS: AMITRIPTYLINE 75 MG TABLET PO SCH (21:01)
[2018-09-21] MEDS: ATORVASTATIN 40 MG TABLET PO SCH (21:01)
[2018-09-22] MEDS: ASPIRIN 81 MG TABLET EC PO SCH (06:07)
[2018-09-22] MEDS: METOPROLOL TARTRATE 25 MG TABLET PO SCH ×2 (06:07→17:47)
[2018-09-22 07:52] VITALS: BP 116/76
[2018-09-22] MEDS: AZITHROMYCIN 500 MG TABLET PO SCH (08:23)
[2018-09-22] MEDS: LISINOPRIL 5 MG TABLET PO SCH (08:23)
[2018-09-22] MEDS: SERTRALINE 50MG TABLET PO SCH (08:24)
[2018-09-22] MEDS: ALBUTEROL/IPRATROPIUM 2.5MG/0.5MG, 3 ML NPPB SCH ×4 (08:35→20:00)
[2018-09-22] MEDS: SENNA/DOCUSATE TABLET PO SCH (09:36)
[2018-09-22] MEDS: FAMOTIDINE 20 MG TABLET PO SCH ×2 (09:36→20:26)
[2018-09-22 17:40] VITALS: BP 116/74
[2018-09-22 19:34] VITALS: BP 105/69
[2018-09-22] MEDS: ATORVASTATIN 40 MG TABLET PO SCH (20:26)
[2018-09-22] MEDS ORDERED: TRAZODONE 50MG TABLET PO SCH (21:00)
[2018-09-23] MEDS: METOPROLOL TARTRATE 25 MG TABLET PO SCH ×2 (06:00→20:23)
[2018-09-23] MEDS: ASPIRIN 81 MG TABLET EC PO SCH (06:00)
[2018-09-23 07:49] VITALS: BP 98/67
[2018-09-23] MEDS: ALBUTEROL/IPRATROPIUM 2.5MG/0.5MG, 3 ML NPPB SCH ×4 (08:10→19:56)
[2018-09-23] MEDS: AZITHROMYCIN 500 MG TABLET PO SCH (09:14)
[2018-09-23] MEDS: SERTRALINE 50MG TABLET PO SCH (09:15)
[2018-09-23] MEDS: LISINOPRIL 5 MG TABLET PO SCH (09:15)
[2018-09-23] MEDS: SENNA/DOCUSATE TABLET PO SCH (09:16)
[2018-09-23] MEDS: FAMOTIDINE 20 MG TABLET PO SCH ×2 (09:16→20:23)
[2018-09-23 19:26] VITALS: BP 117/75
[2018-09-23] MEDS: ATORVASTATIN 40 MG TABLET PO SCH (20:24)
[2018-09-23] MEDS ORDERED: TRAZODONE 100MG TABLET PO SCH (21:00)
[2018-09-24] MEDS: ASPIRIN 81 MG TABLET EC PO SCH (06:06)
[2018-09-24] MEDS: METOPROLOL TARTRATE 25 MG TABLET PO SCH ×2 (06:08→18:25)
[2018-09-24] MEDS: ALBUTEROL/IPRATROPIUM 2.5MG/0.5MG, 3 ML NPPB SCH ×2 (07:00→09:45)
[2018-09-24 07:59] VITALS: BP 102/67
[2018-09-24] MEDS: LISINOPRIL 5 MG TABLET PO SCH (08:11)
[2018-09-24] MEDS: FAMOTIDINE 20 MG TABLET PO SCH ×2 (08:11→20:15)
[2018-09-24] MEDS: SERTRALINE 50MG TABLET PO SCH (08:11)
[2018-09-24] MEDS: AZITHROMYCIN 500 MG TABLET PO SCH (08:11)
[2018-09-24] MEDS: SENNA/DOCUSATE TABLET PO SCH (08:12)
[2018-09-24 18:23] VITALS: BP 105/63
[2018-09-24 20:02] VITALS: BP 114/71
[2018-09-24] MEDS: TRAZODONE 150MG TABLET PO SCH (20:15)
[2018-09-24] MEDS: POLYETHYLENE GLYCOL 17 GM PACKET PO PRN (20:15)
[2018-09-24] MEDS: ATORVASTATIN 40 MG TABLET PO SCH (20:17)
[2018-09-25] MEDS: METOPROLOL TARTRATE 25 MG TABLET PO SCH ×2 (05:51→18:19)
[2018-09-25] MEDS: ASPIRIN 81 MG TABLET EC PO SCH (05:51)
[2018-09-25 05:56] VITALS: BP 103/59
[2018-09-25 07:36] VITALS: BP 102/65
[2018-09-25] MEDS: SERTRALINE 50MG TABLET PO SCH (08:28)
[2018-09-25] MEDS: LISINOPRIL 5 MG TABLET PO SCH (08:28)
[2018-09-25] MEDS: FAMOTIDINE 20 MG TABLET PO SCH ×2 (08:28→21:18)
[2018-09-25] MEDS: SENNA/DOCUSATE TABLET PO SCH (08:28)
[2018-09-25 18:19] VITALS: BP 108/68
[2018-09-25] MEDS: POLYETHYLENE GLYCOL 17 GM PACKET PO PRN (18:37)
[2018-09-25 19:36] VITALS: BP 115/71
[2018-09-25] MEDS: ATORVASTATIN 40 MG TABLET PO SCH (21:18)
[2018-09-25] MEDS: TRAZODONE 150MG TABLET PO SCH (21:18)
[2018-09-26] MEDS: METOPROLOL TARTRATE 25 MG TABLET PO SCH ×2 (06:00→18:14)
[2018-09-26] MEDS: ASPIRIN 81 MG TABLET EC PO SCH (06:00)
[2018-09-26 07:55] VITALS: BP 104/69
[2018-09-26] MEDS: SENNA/DOCUSATE TABLET PO SCH (09:00)
[2018-09-26] MEDS: FAMOTIDINE 20 MG TABLET PO SCH ×2 (09:00→20:11)
[2018-09-26] MEDS: LISINOPRIL 5 MG TABLET PO SCH (09:07)
[2018-09-26] MEDS: SERTRALINE 50MG TABLET PO SCH (09:07)
[2018-09-26 18:12] VITALS: BP 108/63
[2018-09-26 19:28] VITALS: BP 114/69
[2018-09-26] MEDS: TRAZODONE 150MG TABLET PO SCH (20:12)
[2018-09-26] MEDS: ATORVASTATIN 40 MG TABLET PO SCH (20:12)
[2018-09-27] MEDS: METOPROLOL TARTRATE 25 MG TABLET PO SCH ×2 (06:23→18:26)
[2018-09-27] MEDS: ASPIRIN 81 MG TABLET EC PO SCH (06:24)
[2018-09-27 07:23] VITALS: BP 109/77
[2018-09-27] MEDS: ACETAMINOPHEN 325 MG TABLET PO PRN (07:58)
[2018-09-27] MEDS: SERTRALINE 50MG TABLET PO SCH (08:56)
[2018-09-27] MEDS: SENNA/DOCUSATE TABLET PO SCH (08:56)
[2018-09-27] MEDS: LISINOPRIL 5 MG TABLET PO SCH (08:57)
[2018-09-27] MEDS: FAMOTIDINE 20 MG TABLET PO SCH ×2 (08:58→20:21)
[2018-09-27] MEDS: LIDODERM 5% PATCH TD SCH (12:01)
[2018-09-27 19:11] VITALS: BP 118/75
[2018-09-27] MEDS: ATORVASTATIN 40 MG TABLET PO SCH (20:21)
[2018-09-27] MEDS: TRAZODONE 150MG TABLET PO SCH (20:21)
[2018-09-27] MEDS: LIDODERM REMOVE PATCH NOTE XX SCH (22:49)
[2018-09-28 07:20] VITALS: BP 107/63
[2018-09-28] MEDS: ASPIRIN 81 MG TABLET EC PO SCH (07:54)
[2018-09-28] MEDS: METOPROLOL TARTRATE 25 MG TABLET PO SCH ×2 (07:54→20:29)
[2018-09-28] MEDS: FAMOTIDINE 20 MG TABLET PO SCH ×2 (07:57→20:29)
[2018-09-28] MEDS: LISINOPRIL 5 MG TABLET PO SCH (07:57)
[2018-09-28] MEDS: SERTRALINE 50MG TABLET PO SCH (07:58)
[2018-09-28] MEDS: SENNA/DOCUSATE TABLET PO SCH (07:58)
[2018-09-28] MEDS: LIDODERM REMOVE PATCH NOTE XX SCH ×2 (07:59→22:58)
[2018-09-28] MEDS: LIDODERM 5% PATCH TD SCH (11:06)
[2018-09-28 19:55] VITALS: BP 122/73
[2018-09-28] MEDS: ATORVASTATIN 40 MG TABLET PO SCH (20:28)
[2018-09-28] MEDS: TRAZODONE 150MG TABLET PO SCH (20:29)
[2018-09-29] MEDS: ASPIRIN 81 MG TABLET EC PO SCH (05:38)
[2018-09-29] MEDS: METOPROLOL TARTRATE 25 MG TABLET PO SCH ×2 (05:39→17:19)
[2018-09-29 05:41] VITALS: BP 109/69
[2018-09-29 08:04] VITALS: BP 105/72
[2018-09-29] MEDS: LISINOPRIL 5 MG TABLET PO SCH (08:16)
[2018-09-29] MEDS: SERTRALINE 50MG TABLET PO SCH (08:16)
[2018-09-29] MEDS: FAMOTIDINE 20 MG TABLET PO SCH ×2 (08:16→21:17)
[2018-09-29] MEDS: SENNA/DOCUSATE TABLET PO SCH ×2 (08:16→08:20)
[2018-09-29] MEDS: ACETAMINOPHEN 325 MG TABLET PO PRN ×2 (08:19→16:12)
[2018-09-29] MEDS: LIDODERM REMOVE PATCH NOTE XX SCH (11:00)
[2018-09-29 19:37] VITALS: BP 117/71
[2018-09-29] MEDS: TRAZODONE 150MG TABLET PO SCH (21:16)
[2018-09-29] MEDS: ATORVASTATIN 40 MG TABLET PO SCH (21:16)
[2018-09-30 05:39] VITALS: BP 111/70
[2018-09-30] MEDS: ASPIRIN 81 MG TABLET EC PO SCH (05:45)
[2018-09-30] MEDS: METOPROLOL TARTRATE 25 MG TABLET PO SCH (05:45)
[2018-09-30 07:52] VITALS: BP 103/70
[2018-09-30] MEDS: SERTRALINE 50MG TABLET PO SCH (08:05)
[2018-09-30] MEDS: SENNA/DOCUSATE TABLET PO SCH (08:05)
[2018-09-30] MEDS: LISINOPRIL 5 MG TABLET PO SCH (08:06)
[2018-09-30] MEDS: FAMOTIDINE 20 MG TABLET PO SCH (08:07)
[2018-10-01] MEDS ORDERED: UMEC1DIS INH (18:18)
== END 2018-09-30 09:30 | disposition home or self-care (01) | DRG 885 ==
LOC: 3E 16:58
PROVIDERS: ADMIT Counselor Mental Health; ATTEND Counselor Mental Health
DX: F33.2 Major depressive disorder, recurrent severe without psychotic features (principal); J96.10 Chronic respiratory failure, unspecified whether with hypoxia or hypercapnia; R45.851 Suicidal ideations; Z99.81 Dependence on supplemental oxygen; I10 Essential (primary) hypertension; E78.5 Hyperlipidemia, unspecified; F11.90 Opioid use, unspecified, uncomplicated; I25.10 Atherosclerotic heart disease of native coronary artery without angina pectoris; Z95.5 Presence of coronary angioplasty implant and graft; E66.9 Obesity, unspecified; Z68.30 Body mass index [BMI] 30.0-30.9, adult; G47.00 Insomnia, unspecified; J44.9 Chronic obstructive pulmonary disease, unspecified; K21.9 Gastro-esophageal reflux disease without esophagitis; K59.00 Constipation, unspecified; Z79.82 Long term (current) use of aspirin; Z79.899 Other long term (current) drug therapy; Z87.891 Personal history of nicotine dependence; Z90.49 Acquired absence of other specified parts of digestive tract; Z83.6 Family history of other diseases of the respiratory system
CPT/HCPCS: 36415; 80061; 81001; 82140; 82607; 84436; 84443; 85651; 86592; 94640; J7613; J7620; J7626; 92523-GN; J7512

== ENCOUNTER 2018-10-01 16:27 | Inpatient (IN) | payer MEDICARE, MEDICAID ==
[~2018-10-01] VITALS: Ht 167.6 cm; Wt 90.2 kg
[~2018-10-01 16:27] MED LIST changes: +AZIT500T5 PO; +FAMO20TA7 PO; +IPRA3AMP30 NPPB; +ONDA4TAB13 PO; +PRED10TA PO; +SERT50TA5 PO; +TRAM50TA2 PO
[2018-10-01] MEDS ORDERED: methylPREDNISolone SOD SUCC 125 MG/2 ML ONE (16:37)
[2018-10-01] MEDS ORDERED: ALBUTEROL/IPRATROPIUM 2.5MG/0.5MG, 3 ML ONE ×2 (16:40→16:46)
[2018-10-01 16:50] LABS: MEAN CORPUSCULAR HEMOGLOBIN 30.5 pg (27.5-34.5); MEAN CORPUSCULAR HGB CONC 32.9 g/dL (33.2-36.2); MEAN CORPUSCULAR VOLUME 92.7 fL (81-97); MEAN PLATELET VOLUME 8.2 fL (7.4-10.4); PLATELET COUNT 340 x10^3/uL (130-400); RED BLOOD COUNT 5.04 x10^6/uL (4.38-5.82); RED CELL DISTRIBUTION WIDTH 15.5 % (9.4-14.8)
[2018-10-01] MEDS ORDERED: LORazepam 2 MG/ML, 1ML ONE ×2 (16:53→17:11)
[2018-10-01] MEDS ORDERED: ALBUTEROL/IPRATROPIUM 2.5MG/0.5MG, 3 ML NPPB ONE (17:00)
[2018-10-01] MEDS ORDERED: LORazepam 2 MG/ML, 1ML IVPush ONE (17:00)
[2018-10-01] MEDS ORDERED: SODIUM CHLORIDE FLUSH 10ML SYR IVF ONE (17:00)
[2018-10-01] MEDS ORDERED: methylPREDNISolone SOD SUCC 125 MG/2 ML IVP ONE (17:00)
[2018-10-01] MEDS ORDERED: MAGNESIUM SULFATE PMX 2GM/50ML 50 ML IVPB ONE (17:00)
[2018-10-01 17:01] LABS: ALBUMIN 3.7 g/dL (3.4-5.0); ANION GAP 6 mmol/L (5-15); CALCIUM 8.9 mg/dL (8.5-10.1); CHLORIDE 102 mmol/L (98-107); CREATININE 0.96 mg/dL (0.7-1.3)
[2018-10-01 17:14] LABS: BASOPHILS # (AUTO) 0.15 x10^3/uL (0-0.1); BASOPHILS % (AUTO) 1 % (0-1); EOSINOPHILS % (AUTO) 0 % (1-7); LYMPHOCYTES % (AUTO) 14 % (22-44); MD SCAN; MONOCYTES # (AUTO) 1.53 x10^3/uL (0.2-0.8); MONOCYTES % (AUTO) 7 % (2-9); NEUTROPHILS % (AUTO) 78 % (42-75)
[2018-10-01] MEDS ORDERED: ALBUTEROL 0.5%, 20ML ONE (17:45)
[2018-10-01] MEDS ORDERED: KETOROLAC 30 MG/1 ML ONE (18:06)
[2018-10-01 18:07] LABS: TROPONIN I 0.034 ng/mL (0.000-0.045)
[2018-10-01] MEDS ORDERED: UMEC1DIS INH (18:18)
[2018-10-01] MEDS ORDERED: KETOROLAC 30 MG/1 ML IVPush ONE (18:30)
[2018-10-01] MEDS ORDERED: SODIUM CHLORIDE FLUSH 10ML SYR IVF PRN (19:00)
[2018-10-01] MEDS ORDERED: SODIUM CHLORIDE 0.9% 1,000 ML IV SCH (19:11)
[2018-10-01] MEDS ORDERED: ONDANSETRON 2MG/ML, 2ML IVPush PRN (19:30)
[2018-10-01] MEDS ORDERED: NITROGLYCERIN 0.4 MG BOTTLE (25 TABS) SL PRN (19:30)
[2018-10-01] MEDS: AMITRIPTYLINE 75 MG TABLET PO SCH (22:05)
[2018-10-01] MEDS: ATORVASTATIN 40 MG TABLET PO SCH (22:05)
[2018-10-01] MEDS: methylPREDNISolone SOD SUCC 40 MG/ML IVPush SCH (22:06)
[2018-10-01] MEDS: ENOXAPARIN 40 MG/0.4 ML SQ SCH (22:06)
[2018-10-01] MEDS: FAMOTIDINE 20 MG TABLET PO SCH (22:06)
[2018-10-01] MEDS ORDERED: ALBUTEROL SULFATE 2.5 MG/3 ML ONE (22:28)
[2018-10-01] MEDS ORDERED: ALBUTEROL SULFATE 2.5 MG/3 ML NPPB PRN (22:30)
[2018-10-01] MEDS ORDERED: ALBUTEROL SULFATE 2.5 MG/3 ML NPPB SCH (23:00)
[2018-10-02] MEDS: methylPREDNISolone SOD SUCC 40 MG/ML IVPush SCH ×4 (03:16→20:03)
[2018-10-02] MEDS: ACETAMINOPHEN 325 MG TABLET PO PRN ×3 (03:19→20:03)
[2018-10-02 04:00] VITALS: BP 117/55
[2018-10-02 04:38] LABS: MEAN CORPUSCULAR HEMOGLOBIN 31.1 pg (27.5-34.5); MEAN CORPUSCULAR HGB CONC 33.5 g/dL (33.2-36.2); MEAN CORPUSCULAR VOLUME 92.8 fL (81-97); MEAN PLATELET VOLUME 8.8 fL (7.4-10.4); PLATELET COUNT 289 x10^3/uL (130-400); RED BLOOD COUNT 4.22 x10^6/uL (4.38-5.82); RED CELL DISTRIBUTION WIDTH 15.6 % (9.4-14.8)
[2018-10-02 04:45] LABS: ANION GAP 12 mmol/L (5-15); CALCIUM 8.3 mg/dL (8.5-10.1); CHLORIDE 104 mmol/L (98-107); CREATININE 1.18 mg/dL (0.7-1.3)
[2018-10-02 04:58] LABS: BASOPHILS # (AUTO) 0.08 x10^3/uL (0-0.1); BASOPHILS % (AUTO) 1 % (0-1); EOSINOPHILS % (AUTO) 0 % (1-7); LYMPHOCYTES # (AUTO) 0.39 x10^3/uL (1-3.4); LYMPHOCYTES % (AUTO) 2 % (22-44); MD SCAN; MONOCYTES % (AUTO) 1 % (2-9); NEUTROPHILS % (AUTO) 97 % (42-75)
[2018-10-02] MEDS: ALBUTEROL/IPRATROPIUM 2.5MG/0.5MG, 3 ML NPPB SCH ×4 (06:35→19:32)
[2018-10-02] MEDS: ASPIRIN 81 MG TABLET EC PO SCH (08:51)
[2018-10-02] MEDS: SERTRALINE 50MG TABLET PO SCH (08:51)
[2018-10-02] MEDS: LISINOPRIL 5 MG TABLET PO SCH (08:52)
[2018-10-02] MEDS: (Umeclidinium Brm/Vilanterol Tr (Anoro Ellipta 62.5-25 Mcg Inh INH SCH (08:52)
[2018-10-02] MEDS: FAMOTIDINE 20 MG TABLET PO SCH ×2 (08:52→20:25)
[2018-10-02 13:34] VITALS: BP 116/75
[2018-10-02] MEDS: INSULIN LISPRO 100 UNITS/ML, PEN SQ-INSULIN SCH ×2 (18:04→20:25)
[2018-10-02] MEDS: metFORMIN 500 MG TABLET PO SCH (18:04)
[2018-10-02 19:12] VITALS: BP 94/54
[2018-10-02] MEDS: ENOXAPARIN 40 MG/0.4 ML SQ SCH (20:02)
[2018-10-02] MEDS: AMITRIPTYLINE 75 MG TABLET PO SCH ×3 (20:03→21:00)
[2018-10-02] MEDS: ATORVASTATIN 40 MG TABLET PO SCH (20:03)
[2018-10-02 20:27] VITALS: BP 101/58
[2018-10-03 01:42] VITALS: BP 90/53
[2018-10-03] MEDS: methylPREDNISolone SOD SUCC 40 MG/ML IVPush SCH ×4 (02:19→23:26)
[2018-10-03] MEDS: ACETAMINOPHEN 325 MG TABLET PO PRN (02:20)
[2018-10-03] MEDS: ALBUTEROL/IPRATROPIUM 2.5MG/0.5MG, 3 ML NPPB SCH ×4 (06:37→19:41)
[2018-10-03] MEDS: INSULIN LISPRO 100 UNITS/ML, PEN SQ-INSULIN SCH ×4 (07:00→21:16)
[2018-10-03 07:09] VITALS: BP 99/61
[2018-10-03] MEDS: SERTRALINE 50MG TABLET PO SCH (07:44)
[2018-10-03] MEDS: ASPIRIN 81 MG TABLET EC PO SCH (07:44)
[2018-10-03] MEDS: metFORMIN 500 MG TABLET PO SCH ×2 (07:45→16:50)
[2018-10-03] MEDS: LISINOPRIL 5 MG TABLET PO SCH (07:45)
[2018-10-03] MEDS: FAMOTIDINE 20 MG TABLET PO SCH ×2 (07:45→21:13)
[2018-10-03] MEDS: (Umeclidinium Brm/Vilanterol Tr (Anoro Ellipta 62.5-25 Mcg Inh INH SCH (07:46)
[2018-10-03 12:22] VITALS: BP 91/48
[2018-10-03] MEDS: KETOROLAC 30 MG/1 ML IVPush PRN (16:50)
[2018-10-03 20:00] VITALS: BP 133/72
[2018-10-03] MEDS: AMITRIPTYLINE 75 MG TABLET PO SCH (21:00)
[2018-10-03] MEDS ORDERED: AMITRIPTYLINE 25 MG TABLET ONE (21:08)
[2018-10-03] MEDS ORDERED: AMITRIPTYLINE 50 MG TABLET ONE (21:08)
[2018-10-03] MEDS: ATORVASTATIN 40 MG TABLET PO SCH (21:13)
[2018-10-03] MEDS: ENOXAPARIN 40 MG/0.4 ML SQ SCH (21:16)
[2018-10-04 02:00] VITALS: BP 154/73
[2018-10-04] MEDS: KETOROLAC 30 MG/1 ML IVPush PRN (04:25)
[2018-10-04] MEDS: methylPREDNISolone SOD SUCC 40 MG/ML IVPush SCH ×3 (04:38→16:56)
[2018-10-04 05:24] LABS: MEAN CORPUSCULAR HGB CONC 33.6 g/dL (33.2-36.2); MEAN CORPUSCULAR VOLUME 92.4 fL (81-97); MEAN PLATELET VOLUME 8.9 fL (7.4-10.4); PLATELET COUNT 246 x10^3/uL (130-400); RED BLOOD COUNT 4.21 x10^6/uL (4.38-5.82); RED CELL DISTRIBUTION WIDTH 15.6 % (9.4-14.8)
[2018-10-04 05:30] LABS: CHLORIDE 106 mmol/L (98-107)
[2018-10-04 05:38] LABS: ANION GAP 7 mmol/L (5-15); CALCIUM 8.8 mg/dL (8.5-10.1); CREATININE 0.85 mg/dL (0.7-1.3)
[2018-10-04 06:01] LABS: BASOPHILS # (AUTO) 0.13 x10^3/uL (0-0.1); BASOPHILS % (AUTO) 1 % (0-1); EOSINOPHILS % (AUTO) 0 % (1-7); LYMPHOCYTES % (AUTO) 3 % (22-44); MD SCAN; MONOCYTES # (AUTO) 0.29 x10^3/uL (0.2-0.8); MONOCYTES % (AUTO) 1 % (2-9); NEUTROPHILS # (AUTO) 19.67 x10^3/uL (1.8-6.8); NEUTROPHILS % (AUTO) 95 % (42-75)
[2018-10-04] MEDS: INSULIN LISPRO 100 UNITS/ML, PEN SQ-INSULIN SCH ×4 (07:00→20:56)
[2018-10-04] MEDS: ALBUTEROL/IPRATROPIUM 2.5MG/0.5MG, 3 ML NPPB SCH ×4 (07:58→19:05)
[2018-10-04 08:00] VITALS: BP 137/72
[2018-10-04] MEDS: SERTRALINE 50MG TABLET PO SCH (08:05)
[2018-10-04] MEDS: metFORMIN 500 MG TABLET PO SCH ×2 (08:05→16:56)
[2018-10-04] MEDS: ASPIRIN 81 MG TABLET EC PO SCH (08:05)
[2018-10-04] MEDS: FAMOTIDINE 20 MG TABLET PO SCH ×2 (08:05→20:56)
[2018-10-04] MEDS: LISINOPRIL 5 MG TABLET PO SCH (08:06)
[2018-10-04] MEDS: (Umeclidinium Brm/Vilanterol Tr (Anoro Ellipta 62.5-25 Mcg Inh INH SCH (09:00)
[2018-10-04] MEDS ORDERED: FLUTICASONE/VILANTEROL 100-25MCG/INH INH SCH (12:00)
[2018-10-04] MEDS: BUDESONIDE 0.5 MG/2 ML INHA INH SCH ×2 (12:00→19:05)
[2018-10-04] MEDS: GUAIFENESIN ER 600 MG TABLET PO SCH ×2 (12:20→20:56)
[2018-10-04] MEDS: DOXYCYCLINE 100 MG in DEXTROSE 5% 250 ML IV SCH (12:53)
[2018-10-04 13:20] VITALS: BP 104/57
[2018-10-04 14:03] LABS: RAPID INFLUENZA A Negative (Negative); RAPID INFLUENZA B Negative (Negative)
[2018-10-04 20:08] VITALS: BP 114/68
[2018-10-04] MEDS: ENOXAPARIN 40 MG/0.4 ML SQ SCH (20:55)
[2018-10-04] MEDS: ATORVASTATIN 40 MG TABLET PO SCH (20:56)
[2018-10-04] MEDS: AMITRIPTYLINE 75 MG TABLET PO SCH (20:56)
[2018-10-04] MEDS: ACETAMINOPHEN 325 MG TABLET PO PRN (20:56)
[2018-10-05] MEDS: DOXYCYCLINE 100 MG in DEXTROSE 5% 250 ML IV SCH ×2 (00:32→13:02)
[2018-10-05] MEDS: methylPREDNISolone SOD SUCC 40 MG/ML IVPush SCH ×3 (00:32→12:30)
[2018-10-05] MEDS: ACETAMINOPHEN 325 MG TABLET PO PRN ×2 (01:47→08:10)
[2018-10-05 01:54] VITALS: BP 122/75
[2018-10-05 05:20] LABS: ANION GAP 7 mmol/L (5-15); CALCIUM 8.9 mg/dL (8.5-10.1); CHLORIDE 103 mmol/L (98-107)
[2018-10-05 05:23] LABS: CREATININE 0.99 mg/dL (0.7-1.3)
[2018-10-05 05:54] LABS: BASOPHILS # (AUTO) 0.05 x10^3/uL (0-0.1); BASOPHILS % (AUTO) 0 % (0-1); EOSINOPHILS # (AUTO) 0.12 x10^3/uL (0-0.4); EOSINOPHILS % (AUTO) 1 % (1-7); LYMPHOCYTES % (AUTO) 2 % (22-44); MD NO; MEAN CORPUSCULAR HGB CONC 33.2 g/dL (33.2-36.2); MEAN CORPUSCULAR VOLUME 93.4 fL (81-97); MONOCYTES # (AUTO) 0.55 x10^3/uL (0.2-0.8); MONOCYTES % (AUTO) 3 % (2-9); NEUTROPHILS # (AUTO) 16.64 x10^3/uL (1.8-6.8); NEUTROPHILS % (AUTO) 94 % (42-75); PLATELET COUNT 259 x10^3/uL (130-400); RED CELL DISTRIBUTION WIDTH 15.8 % (9.4-14.8)
[2018-10-05] MEDS: BUDESONIDE 0.5 MG/2 ML INHA INH SCH ×2 (06:30→18:24)
[2018-10-05] MEDS: ALBUTEROL/IPRATROPIUM 2.5MG/0.5MG, 3 ML NPPB SCH ×4 (06:30→18:24)
[2018-10-05] MEDS: INSULIN LISPRO 100 UNITS/ML, PEN SQ-INSULIN SCH ×4 (07:00→21:05)
[2018-10-05 07:25] VITALS: BP 110/66
[2018-10-05] MEDS: LISINOPRIL 5 MG TABLET PO SCH (08:10)
[2018-10-05] MEDS: ASPIRIN 81 MG TABLET EC PO SCH (08:10)
[2018-10-05] MEDS: GUAIFENESIN ER 600 MG TABLET PO SCH ×2 (08:10→20:54)
[2018-10-05] MEDS: SERTRALINE 50MG TABLET PO SCH (08:10)
[2018-10-05] MEDS: FAMOTIDINE 20 MG TABLET PO SCH ×2 (08:10→20:54)
[2018-10-05] MEDS: metFORMIN 500 MG TABLET PO SCH ×2 (08:10→18:19)
[2018-10-05] MEDS: (Umeclidinium Brm/Vilanterol Tr (Anoro Ellipta 62.5-25 Mcg Inh INH SCH (09:00)
[2018-10-05] MEDS ORDERED: GUAIFENESIN/COD200MG-20MG/10ML LIQUID PO PRN (11:30)
[2018-10-05] MEDS ORDERED: methylPREDNISolone SOD SUCC 125 MG/2 ML ONE ×2 (12:49→16:12)
[2018-10-05 14:00] VITALS: BP 117/68
[2018-10-05 19:56] VITALS: BP 120/69
[2018-10-05] MEDS: ATORVASTATIN 40 MG TABLET PO SCH (20:54)
[2018-10-05] MEDS: AMITRIPTYLINE 75 MG TABLET PO SCH (20:54)
[2018-10-05] MEDS: ENOXAPARIN 40 MG/0.4 ML SQ SCH (20:54)
[2018-10-05] MEDS: DOXYCYCLINE 100MG CAP PO SCH (20:55)
[2018-10-06 02:00] VITALS: BP 120/73
[2018-10-06 03:50] VITALS: BP 122/72
[2018-10-06 05:44] LABS: BASOPHILS # (AUTO) 0.35 x10^3/uL (0-0.1); BASOPHILS % (AUTO) 3 % (0-1); EOSINOPHILS # (AUTO) 0.01 x10^3/uL (0-0.4); EOSINOPHILS % (AUTO) 0 % (1-7); LYMPHOCYTES # (AUTO) 1.25 x10^3/uL (1-3.4); LYMPHOCYTES % (AUTO) 9 % (22-44); MD NO; MEAN CORPUSCULAR HEMOGLOBIN 30.7 pg (27.5-34.5); MEAN CORPUSCULAR HGB CONC 32.9 g/dL (33.2-36.2); MEAN CORPUSCULAR VOLUME 93.5 fL (81-97); MEAN PLATELET VOLUME 9.1 fL (7.4-10.4); MONOCYTES # (AUTO) 0.61 x10^3/uL (0.2-0.8); MONOCYTES % (AUTO) 4 % (2-9); NEUTROPHILS % (AUTO) 84 % (42-75); PLATELET COUNT 237 x10^3/uL (130-400); RED BLOOD COUNT 4.39 x10^6/uL (4.38-5.82); RED CELL DISTRIBUTION WIDTH 16.1 % (9.4-14.8)
[2018-10-06 05:55] LABS: ANION GAP 6 mmol/L (5-15); CALCIUM 8.3 mg/dL (8.5-10.1); CHLORIDE 103 mmol/L (98-107)
[2018-10-06 05:56] LABS: CREATININE 0.73 mg/dL (0.7-1.3)
[2018-10-06] MEDS: BUDESONIDE 0.5 MG/2 ML INHA INH SCH (06:40)
[2018-10-06] MEDS: ALBUTEROL/IPRATROPIUM 2.5MG/0.5MG, 3 ML NPPB SCH ×2 (06:40→10:15)
[2018-10-06] MEDS: INSULIN LISPRO 100 UNITS/ML, PEN SQ-INSULIN SCH ×2 (07:00→12:04)
[2018-10-06 07:35] VITALS: BP 122/62
[2018-10-06] MEDS: DOXYCYCLINE 100MG CAP PO SCH (08:27)
[2018-10-06] MEDS: (Umeclidinium Brm/Vilanterol Tr (Anoro Ellipta 62.5-25 Mcg Inh INH SCH (08:27)
[2018-10-06] MEDS: ASPIRIN 81 MG TABLET EC PO SCH (08:27)
[2018-10-06] MEDS: metFORMIN 500 MG TABLET PO SCH (08:27)
[2018-10-06] MEDS: SERTRALINE 50MG TABLET PO SCH (08:28)
[2018-10-06] MEDS: GUAIFENESIN ER 600 MG TABLET PO SCH (08:28)
[2018-10-06] MEDS: LISINOPRIL 5 MG TABLET PO SCH (08:28)
[2018-10-06] MEDS: FAMOTIDINE 20 MG TABLET PO SCH (08:28)
[2018-10-06 13:20] VITALS: BP 150/69
[2018-10-06] MEDS ORDERED: DOXY100C2 PO (14:30)
[2018-10-06] MEDS ORDERED: PRED10TA PO (14:30)
[2018-10-06] MEDS ORDERED: METF500T PO (14:30)
[2018-10-06 15:47] LABS: HEMOGLOBIN A1C 7.7 % (4.2-6.3)
== END 2018-10-06 15:53 | disposition home or self-care (01) | DRG 189 ==
LOC: ED 18:18 → EDIP 18:39 → CCU 20:15 → 3NE 10-02 12:58 → DCLOUNGE 10-06 15:49
PROVIDERS: ADMIT Hospitalist; ATTEND Hospitalist
PROC: 5A09357 Assistance with Respiratory Ventilation, Less than 24 Consecutive Hours, Continuous Positive Airway Pressure (ICD-10-PCS; principal; 2018-10-01)
DX: J96.21 Acute and chronic respiratory failure with hypoxia (principal); J44.1 Chronic obstructive pulmonary disease with (acute) exacerbation; J98.11 Atelectasis; I10 Essential (primary) hypertension; E11.9 Type 2 diabetes mellitus without complications; I25.10 Atherosclerotic heart disease of native coronary artery without angina pectoris; Z95.5 Presence of coronary angioplasty implant and graft; E66.9 Obesity, unspecified; F32.9 Major depressive disorder, single episode, unspecified; Z91.19 Patient's noncompliance with other medical treatment and regimen; Z90.49 Acquired absence of other specified parts of digestive tract; E78.5 Hyperlipidemia, unspecified; Z91.5 Personal history of self-harm; Z59.0 Homelessness; E78.00 Pure hypercholesterolemia, unspecified; F12.10 Cannabis abuse, uncomplicated; F41.9 Anxiety disorder, unspecified; Z87.891 Personal history of nicotine dependence; Z99.81 Dependence on supplemental oxygen
CPT/HCPCS: 36415; 36600; 71045; 80048; 82040; 82803; 82962; 83036; 83735; 84100; 84484; 85025; 87081; 87400; 93005; 94640; 94660; 96365; 96366; 96375; 99291; G0378; J1650; J1885; J7060; J7613; J7620; J7626; J1815; J2060; J2920; J2930; J3475; J7030; J7512

== ENCOUNTER 2018-12-01 15:03 | Inpatient (IN) | payer MEDICARE, MEDICAID ==
[~2018-12-01] VITALS: Ht 167.6 cm; Wt 91.0 kg
[~2018-12-01 15:03] MED LIST changes: +DOXY100C2 PO; +METF500T PO; +SERT50TA28 PO; -SERT50TA5 PO; +UMEC1DIS INH
[2018-12-01] MEDS ORDERED: PLEASE ENTER HEIGHT AND WEIGHT MC SCH (15:30)
[2018-12-01] MEDS ORDERED: methylPREDNISolone SOD SUCC 125 MG/2 ML IVP ONE (15:30)
[2018-12-01] MEDS ORDERED: ALBUTEROL/IPRATROPIUM 2.5MG/0.5MG, 3 ML NPPB SCH (15:30)
[2018-12-01] MEDS ORDERED: SODIUM CHLORIDE FLUSH 10ML SYR IVF ONE (15:30)
[2018-12-01] MEDS ORDERED: UMEC1DIS INH (15:45)
[2018-12-01 15:48] LABS: BASOPHILS # (AUTO) 0.01 x10^3/uL (0-0.1); BASOPHILS % (AUTO) 0 % (0-1); EOSINOPHILS # (AUTO) 0.13 x10^3/uL (0-0.4); EOSINOPHILS % (AUTO) 1 % (1-7); LYMPHOCYTES % (AUTO) 14 % (22-44); MD NO; MEAN CORPUSCULAR HEMOGLOBIN 30.2 pg (27.5-34.5); MEAN CORPUSCULAR HGB CONC 31.5 g/dL (33.2-36.2); MEAN PLATELET VOLUME 9.1 fL (7.4-10.4); MONOCYTES # (AUTO) 0.59 x10^3/uL (0.2-0.8); MONOCYTES % (AUTO) 6 % (2-9); NEUTROPHILS # (AUTO) 7.39 x10^3/uL (1.8-6.8); NEUTROPHILS % (AUTO) 78 % (42-75); PLATELET COUNT 384 x10^3/uL (130-400); RED BLOOD COUNT 5.14 x10^6/uL (4.38-5.82); RED CELL DISTRIBUTION WIDTH 15.1 % (9.4-14.8)
[2018-12-01 15:53] LABS: ALANINE AMINOTRANSFERASE 23 U/L (12-78); ALBUMIN 3.5 g/dL (3.4-5.0); ANION GAP 5 mmol/L (5-15); CALCIUM 8.9 mg/dL (8.5-10.1); CHLORIDE 101 mmol/L (98-107); CREATININE 0.86 mg/dL (0.7-1.3)
[2018-12-01 15:57] LABS: ALKALINE PHOSPHATASE 78 U/L (45-117); BILIRUBIN,TOTAL 0.3 mg/dL (0.2-1.0); TOTAL PROTEIN 7.2 g/dL (6.4-8.2); TROPONIN I < 0.015 ng/mL (0.000-0.045)
[2018-12-01] MEDS ORDERED: methylPREDNISolone SOD SUCC 125 MG/2 ML ONE (16:01)
[2018-12-01] MEDS: SODIUM CHLORIDE 0.9% 1,000 ML IV SCH (17:06)
--- NOTE | 2018-12-01 17:08 | NUR ---
REPORT FROM SAMEER BROWN. PT MOVED TO ROOM 38. PT SITTING UP IN [facility], PWD; NAD NOTED. NO ACCESSORY MUSCLE USE NOTED. PT SPEAKING IN FULL SENTENCES, SPO2 >90% ON 6L BY NC. BP/SPO2/ECG MONITORING IN PLACE. NSR ON MONITOR. AWAITING ADMIT.
[2018-12-01] MEDS ORDERED: LABETALOL 5MG/ML, 20ML IVPush PRN (17:30)
[2018-12-01] MEDS ORDERED: hydrALAzine 20 MG/ML, 1ML IVPush PRN (17:30)
[2018-12-01] MEDS ORDERED: ONDANSETRON 2MG/ML, 2ML IVPush PRN (17:30)
[2018-12-01] MEDS ORDERED: morphine SULFATE 10 MG/ML, 1ML IVPush PRN (17:30)
[2018-12-01] MEDS: ENOXAPARIN 40 MG/0.4 ML SQ SCH (17:30)
[2018-12-01] MEDS ORDERED: GABAPENTIN 300 MG CAPSULE PO PRN (17:30)
[2018-12-01] MEDS ORDERED: PROMETHAZINE 25 MG/ML, 1ML IM PRN (17:30)
[2018-12-01] MEDS ORDERED: ONDANSETRON ODT 4 MG PO PRN (17:30)
--- NOTE | 2018-12-01 17:33 | NUR ---
LUNCH RN: PT RESTING IN BED. NADN. SMALL SPRITE SODA GIVEN FOR PO FLUIDS
[2018-12-01 17:49] LABS: FREE T4 (FREE THYROXINE) 0.79 ng/dL (0.76-1.46); THYROID STIMULATING HORMONE 0.365 mIU/L (0.358-3.740)
--- NOTE | 2018-12-01 18:21 | NUR ---
ORDERS CHANGED TO MED-TELE. PT UPDATED ON DELAY. SITTING UP IN [facility]. SPO2 REMAINS WNL. NAD NOTED.
--- NOTE | 2018-12-01 18:33 | NUR ---
PT FOUND STANDING STEADILY IN HALLWAY, OFF O2, REQUESTING BATHROOM. PT ASSISTED BACK TO [facility]. SPO2 ON RA 78% W/ RR 38. O2 BY 6L NC APPLIED. AND PT ASKED TO BREATHE. SPO2 TO 90'S, DECREASE IN RR NOTED, NOW 20. PT PROVIDED URINAL.
--- NOTE | 2018-12-01 18:41 | NUR ---
lunch rn: pt given snack and po fluids
--- NOTE | 2018-12-01 19:07 | NUR ---
Juan M frederick in [facility] - 12/01/18 at 1907 by POLA REPORT TO HAIM [id number]
[2018-12-01] MEDS ORDERED: ENOXAPARIN 40 MG/0.4 ML ONE (19:12)
[2018-12-01 19:32] VITALS: BP 134/86
[2018-12-01] MEDS: ALBUTEROL/IPRATROPIUM 2.5MG/0.5MG, 3 ML NPPB SCH (20:30)
[2018-12-01] MEDS: methylPREDNISolone SOD SUCC 125 MG/2 ML IVPush SCH (20:45)
[2018-12-01] MEDS: DOXYCYCLINE 100 MG in DEXTROSE 5% 250 ML IV SCH (20:45)
[2018-12-01] MEDS ORDERED: GUAIFENESIN 100 MG/5 ML, 10ML UDC ONE (20:59)
[2018-12-01] MEDS ORDERED: GUAIFENESIN/DM 200-20MG, 10ML UDC PO PRN (21:00)
[2018-12-01] MEDS: ACETAMINOPHEN 325 MG TABLET PO PRN (21:12)
[2018-12-02 02:43] VITALS: BP 126/73
[2018-12-02] MEDS: methylPREDNISolone SOD SUCC 125 MG/2 ML IVPush SCH ×4 (03:34→21:46)
[2018-12-02] MEDS: SODIUM CHLORIDE 0.9% 1,000 ML IV SCH (04:37)
[2018-12-02 05:07] LABS: BASOPHILS # (AUTO) 0.04 x10^3/uL (0-0.1); BASOPHILS % (AUTO) 0 % (0-1); EOSINOPHILS % (AUTO) 0 % (1-7); LYMPHOCYTES # (AUTO) 0.53 x10^3/uL (1-3.4); LYMPHOCYTES % (AUTO) 6 % (22-44); MD NO; MEAN CORPUSCULAR HEMOGLOBIN 30.4 pg (27.5-34.5); MEAN CORPUSCULAR HGB CONC 32.2 g/dL (33.2-36.2); MEAN CORPUSCULAR VOLUME 94.3 fL (81-97); MEAN PLATELET VOLUME 9.6 fL (7.4-10.4); MONOCYTES # (AUTO) 0.12 x10^3/uL (0.2-0.8); MONOCYTES % (AUTO) 1 % (2-9); NEUTROPHILS # (AUTO) 8.42 x10^3/uL (1.8-6.8); NEUTROPHILS % (AUTO) 92 % (42-75); PLATELET COUNT 334 x10^3/uL (130-400); RED BLOOD COUNT 4.77 x10^6/uL (4.38-5.82); RED CELL DISTRIBUTION WIDTH 14.6 % (9.4-14.8)
[2018-12-02 05:22] LABS: ALBUMIN 3.1 g/dL (3.4-5.0); ANION GAP 4 mmol/L (5-15); CALCIUM 9.1 mg/dL (8.5-10.1); CHLORIDE 100 mmol/L (98-107)
[2018-12-02 05:27] LABS: ALANINE AMINOTRANSFERASE 22 U/L (12-78); ALKALINE PHOSPHATASE 72 U/L (45-117); BILIRUBIN,TOTAL 0.5 mg/dL (0.2-1.0); CHOL/HDL RATIO 5.1; CHOLESTEROL, TOTAL 193 mg/dL (140-239); CREATININE 0.81 mg/dL (0.7-1.3); HDL CHOL % 20 % (26-37); HDL CHOLESTEROL (DIRECT) 38 mg/dL (40-60); LDL CHOLESTEROL,CALCULATED 133 mg/dL (54-169); LDL/HDL RATIO 3.5 (0.5-3.0); TOTAL PROTEIN 6.8 g/dL (6.4-8.2); TRIGLYCERIDES 111 mg/dL (50-200); VLDL CHOLESTEROL 22 mg/dL (0-25)
[2018-12-02] MEDS: ALBUTEROL/IPRATROPIUM 2.5MG/0.5MG, 3 ML NPPB SCH ×5 (06:50→22:15)
[2018-12-02 07:14] VITALS: BP 112/72
[2018-12-02] MEDS: ACETAMINOPHEN 325 MG TABLET PO PRN ×3 (10:29→21:47)
[2018-12-02] MEDS: GUAIFENESIN ER 600 MG TABLET PO SCH ×2 (12:27→21:47)
[2018-12-02 13:40] VITALS: BP 116/74
[2018-12-02] MEDS: DOXYCYCLINE 100 MG in DEXTROSE 5% 250 ML IV SCH (14:22)
[2018-12-02] MEDS: DOCUSATE 100 MG CAPSULE PO PRN (16:00)
[2018-12-02] MEDS: ENOXAPARIN 40 MG/0.4 ML SQ SCH (17:49)
[2018-12-02] MEDS: OXYcodone IR 5MG TABLET PO PRN ×2 (17:55→19:43)
[2018-12-02 20:02] VITALS: BP 118/77
[2018-12-03 00:06] VITALS: BP 118/71
[2018-12-03] MEDS: OXYcodone IR 5MG TABLET PO PRN ×3 (00:12→17:17)
[2018-12-03] MEDS: methylPREDNISolone SOD SUCC 125 MG/2 ML IVPush SCH ×4 (03:22→20:55)
[2018-12-03] MEDS: DOXYCYCLINE 100 MG in DEXTROSE 5% 250 ML IV SCH ×2 (03:22→15:15)
[2018-12-03] MEDS: ALBUTEROL/IPRATROPIUM 2.5MG/0.5MG, 3 ML NPPB SCH ×5 (06:00→22:28)
[2018-12-03 06:36] VITALS: BP 106/64
[2018-12-03] MEDS: ACETAMINOPHEN 325 MG TABLET PO PRN (09:43)
[2018-12-03] MEDS: GUAIFENESIN ER 600 MG TABLET PO SCH ×2 (09:43→20:55)
[2018-12-03] MEDS: DOCUSATE 100 MG CAPSULE PO PRN (12:23)
[2018-12-03] MEDS: CEFTRIAXONE PMX 2GM/50ML 50 ML IV SCH (12:24)
[2018-12-03] MEDS: POLYETHYLENE GLYCOL 17 GM PACKET PO PRN (12:31)
[2018-12-03 13:50] VITALS: BP 106/62
[2018-12-03] MEDS: ENOXAPARIN 40 MG/0.4 ML SQ SCH (17:17)
[2018-12-03 18:50] VITALS: BP 123/69
[2018-12-04 00:38] VITALS: BP 132/70
[2018-12-04] MEDS: OXYcodone IR 5MG TABLET PO PRN ×4 (00:42→19:43)
[2018-12-04] MEDS: DOXYCYCLINE 100 MG in DEXTROSE 5% 250 ML IV SCH ×2 (02:32→15:09)
[2018-12-04] MEDS: methylPREDNISolone SOD SUCC 125 MG/2 ML IVPush SCH ×4 (02:32→21:01)
[2018-12-04] MEDS: ALBUTEROL/IPRATROPIUM 2.5MG/0.5MG, 3 ML NPPB SCH ×5 (06:00→19:08)
[2018-12-04 06:31] VITALS: BP 115/58
[2018-12-04] MEDS: GUAIFENESIN ER 600 MG TABLET PO SCH ×2 (07:56→19:43)
[2018-12-04] MEDS: DOCUSATE 100 MG CAPSULE PO PRN ×2 (08:03→19:43)
[2018-12-04] MEDS ORDERED: ALBUTEROL SULFATE 2.5 MG/3 ML NPPB PRN (11:00)
[2018-12-04] MEDS ORDERED: FUROSEMIDE 40 MG/4 ML IV ONE (11:30)
[2018-12-04] MEDS: CEFTRIAXONE PMX 2GM/50ML 50 ML IV SCH (12:21)
[2018-12-04 13:07] VITALS: BP 126/70
[2018-12-04] MEDS: POLYETHYLENE GLYCOL 17 GM PACKET PO PRN (14:04)
[2018-12-04] MEDS: ENOXAPARIN 40 MG/0.4 ML SQ SCH (17:30)
[2018-12-04 18:55] VITALS: BP 127/64
[2018-12-05 01:19] VITALS: BP 131/66
[2018-12-05] MEDS: methylPREDNISolone SOD SUCC 125 MG/2 ML IVPush SCH ×4 (02:53→23:02)
[2018-12-05] MEDS: DOXYCYCLINE 100 MG in DEXTROSE 5% 250 ML IV SCH ×2 (02:54→14:49)
[2018-12-05 05:36] LABS: ANION GAP 8 mmol/L (5-15); CALCIUM 8.6 mg/dL (8.5-10.1); CHLORIDE 101 mmol/L (98-107); CREATININE 0.94 mg/dL (0.7-1.3)
[2018-12-05] MEDS: ALBUTEROL/IPRATROPIUM 2.5MG/0.5MG, 3 ML NPPB SCH ×4 (06:33→20:50)
[2018-12-05 07:07] VITALS: BP 127/77
[2018-12-05] MEDS: GUAIFENESIN ER 600 MG TABLET PO SCH ×2 (10:06→20:09)
[2018-12-05] MEDS: POLYETHYLENE GLYCOL 17 GM PACKET PO PRN (10:10)
[2018-12-05] MEDS: OXYcodone IR 5MG TABLET PO PRN ×2 (10:35→17:14)
[2018-12-05] MEDS: CEFTRIAXONE PMX 2GM/50ML 50 ML IV SCH (12:49)
[2018-12-05 15:03] VITALS: BP 133/74
[2018-12-05] MEDS: ENOXAPARIN 40 MG/0.4 ML SQ SCH (16:50)
[2018-12-05] MEDS: BISACODYL 10 MG SUPP PR PRN (17:53)
[2018-12-05 18:40] VITALS: BP 134/88
[2018-12-05] MEDS: DOCUSATE 100 MG CAPSULE PO PRN (20:09)
[2018-12-06 02:13] VITALS: BP 110/52
[2018-12-06] MEDS: DOXYCYCLINE 100 MG in DEXTROSE 5% 250 ML IV SCH ×2 (02:15→14:06)
[2018-12-06] MEDS: ACETAMINOPHEN 325 MG TABLET PO PRN ×3 (04:39→17:18)
[2018-12-06] MEDS: methylPREDNISolone SOD SUCC 125 MG/2 ML IVPush SCH ×4 (04:39→23:12)
[2018-12-06] MEDS: ALBUTEROL/IPRATROPIUM 2.5MG/0.5MG, 3 ML NPPB SCH ×4 (07:00→20:00)
[2018-12-06 08:35] VITALS: BP 115/65
[2018-12-06] MEDS: GUAIFENESIN ER 600 MG TABLET PO SCH ×2 (08:35→20:24)
[2018-12-06] MEDS: POLYETHYLENE GLYCOL 17 GM PACKET PO PRN (08:46)
[2018-12-06] MEDS: DOCUSATE 100 MG CAPSULE PO PRN (08:46)
[2018-12-06] MEDS: CEFTRIAXONE PMX 2GM/50ML 50 ML IV SCH (11:22)
[2018-12-06] MEDS: BISACODYL 10 MG SUPP PR PRN (14:06)
[2018-12-06 14:18] VITALS: BP 128/71
[2018-12-06] MEDS: ENOXAPARIN 40 MG/0.4 ML SQ SCH (17:18)
[2018-12-06] MEDS: OXYcodone IR 5MG TABLET PO PRN (17:30)
[2018-12-06 18:54] VITALS: BP 113/63
[2018-12-07 01:52] VITALS: BP 118/63
[2018-12-07] MEDS: DOXYCYCLINE 100 MG in DEXTROSE 5% 250 ML IV SCH (02:49)
[2018-12-07] MEDS: OXYcodone IR 5MG TABLET PO PRN (02:49)
[2018-12-07] MEDS: methylPREDNISolone SOD SUCC 125 MG/2 ML IVPush SCH ×2 (05:01→11:16)
[2018-12-07] MEDS: ALBUTEROL/IPRATROPIUM 2.5MG/0.5MG, 3 ML NPPB SCH ×2 (08:05→11:45)
[2018-12-07 08:06] VITALS: BP 126/73
[2018-12-07] MEDS: GUAIFENESIN ER 600 MG TABLET PO SCH (08:39)
[2018-12-07] MEDS: CEFTRIAXONE PMX 2GM/50ML 50 ML IV SCH (11:16)
[2018-12-07] MEDS ORDERED: DOXY100T10 PO (11:54)
[2018-12-07] MEDS ORDERED: METH4TAB2 PO (11:54)
[2018-12-07] MEDS ORDERED: ALBU8.5H8 INH (11:54)
[2018-12-07] MEDS ORDERED: CEFD300C37 PO (11:54)
[2018-12-07] MEDS ORDERED: UMEC1DIS INH (11:54)
== END 2018-12-07 14:38 | disposition home or self-care (01) | DRG 189 ==
LOC: ED 16:46 → EDIP 17:06 → 4WST 19:30 → 4EST 12-07 05:49
PROVIDERS: ADMIT Internal Medicine; ATTEND Internal Medicine
DX: J96.20 Acute and chronic respiratory failure, unspecified whether with hypoxia or hypercapnia (principal); J44.0 Chronic obstructive pulmonary disease with (acute) lower respiratory infection; R45.851 Suicidal ideations; J44.1 Chronic obstructive pulmonary disease with (acute) exacerbation; J20.9 Acute bronchitis, unspecified; I10 Essential (primary) hypertension; E11.9 Type 2 diabetes mellitus without complications; E66.9 Obesity, unspecified; E78.00 Pure hypercholesterolemia, unspecified; F32.9 Major depressive disorder, single episode, unspecified; E78.5 Hyperlipidemia, unspecified; I25.10 Atherosclerotic heart disease of native coronary artery without angina pectoris; Z95.5 Presence of coronary angioplasty implant and graft; Z91.14 Patient's other noncompliance with medication regimen; Z68.32 Body mass index [BMI] 32.0-32.9, adult; Z87.891 Personal history of nicotine dependence; Z90.49 Acquired absence of other specified parts of digestive tract
CPT/HCPCS: 36415; 71045; 80048; 80053; 80061; 82962; 83036; 83605; 83735; 84439; 84443; 84484; 85025; 87040; 87205; 93005; 94640; 96372; 96374; 99285; G0378; J0696; J1650; J1940; J7060; J7620; J2930; J7030

== ENCOUNTER 2019-02-01 22:24 | Inpatient (IN) | payer MEDICARE, MEDICAID ==
[~2019-02-01] VITALS: Ht 167.6 cm; Wt 86.0 kg
[~2019-02-01 22:24] MED LIST changes: +DOXY100T10 PO; +METH4TAB2 PO
[2019-02-01] MEDS ORDERED: SODIUM CHLORIDE 0.9% 1,000ML IVBOLUS ONE (22:30)
[2019-02-01] MEDS ORDERED: IPRATROPIUM 0.5 MG/2.5 ML INHA NPPB SCH (22:30)
[2019-02-01] MEDS ORDERED: methylPREDNISolone SOD SUCC 125 MG/2 ML IVP ONE (22:30)
[2019-02-01] MEDS ORDERED: ALBUTEROL 0.5%, 20ML NPPB SCH (22:30)
[2019-02-01] MEDS ORDERED: MAGNESIUM SULFATE PMX 2GM/50ML 50 ML IVPB ONE (22:30)
[2019-02-01] MEDS ORDERED: SODIUM CHLORIDE FLUSH 10ML SYR IVF ONE (22:30)
[2019-02-01] MEDS ORDERED: methylPREDNISolone SOD SUCC 125 MG/2 ML ONE (22:52)
[2019-02-01] MEDS ORDERED: MAGNESIUM SULFATE PMX 2GM/50ML 50 ML ONE (22:52)
[2019-02-01] MEDS ORDERED: ONDANSETRON 2MG/ML, 2ML IVPush ONE (23:00)
[2019-02-01] MEDS ORDERED: ONDANSETRON 2MG/ML, 2ML ONE (23:00)
[2019-02-01 23:06] LABS: INTERNATIONAL NORMALIZED RATIO 0.95 (0.93-1.1)
[2019-02-01 23:07] LABS: ALANINE AMINOTRANSFERASE 21 U/L (12-78); ALBUMIN 3.6 g/dL (3.4-5.0); ANION GAP 5 mmol/L (5-15); CALCIUM 8.4 mg/dL (8.5-10.1); CHLORIDE 108 mmol/L (98-107); CREATININE 0.94 mg/dL (0.7-1.3)
--- NOTE | 2019-02-01 23:08 | NUR ---
PT ARRIVED BY EMS FOR DEVELOPING SOB TODAY. TOOK 1 BREATHING TREATMENT AT HOME. WAS GIVEN 2 DUONEBS ENROUTE AND WAS PLACED ON CPAP FOR SPO2 80'S. UPON ARRIVAL SWITCHED TO BIPAP WITH 40% FIO2. HX ST 4 EMPYSEMA, QUIT SMOKING 1 YEAR AGO.
[2019-02-01 23:11] LABS: ALKALINE PHOSPHATASE 85 U/L (45-117); BILIRUBIN,TOTAL 0.2 mg/dL (0.2-1.0); TROPONIN I < 0.015 ng/mL (0.000-0.045)
[2019-02-01 23:28] LABS: BASOPHILS # (AUTO) 0.05 x10^3/uL (0-0.1); BASOPHILS % (AUTO) 1 % (0-1); EOSINOPHILS % (AUTO) 3 % (1-7); LYMPHOCYTES # (AUTO) 1.72 x10^3/uL (1-3.4); LYMPHOCYTES % (AUTO) 22 % (22-44); MD SCAN; MEAN CORPUSCULAR HEMOGLOBIN 30.6 pg (27.5-34.5); MEAN CORPUSCULAR HGB CONC 32.9 g/dL (33.2-36.2); MEAN CORPUSCULAR VOLUME 92.9 fL (81-97); MEAN PLATELET VOLUME 9.8 fL (7.4-10.4); MONOCYTES # (AUTO) 0.61 x10^3/uL (0.2-0.8); MONOCYTES % (AUTO) 8 % (2-9); NEUTROPHILS # (AUTO) 5.18 x10^3/uL (1.8-6.8); NEUTROPHILS % (AUTO) 67 % (42-75); PLATELET COUNT 293 x10^3/uL (130-400); RED BLOOD COUNT 5.33 x10^6/uL (4.38-5.82); RED CELL DISTRIBUTION WIDTH 14.3 % (9.4-14.8)
--- NOTE | 2019-02-01 23:35 | NUR ---
PT TAKEN OFF BIPAP PLACES ON OXYGEN MASK 5L. SPO2 97%
[2019-02-02] MEDS ORDERED: GUAIFENESIN/DM 200-20MG, 10ML UDC PO PRN
[2019-02-02] MEDS ORDERED: ONDANSETRON ODT 4 MG PO PRN
[2019-02-02] MEDS ORDERED: BISACODYL 10 MG SUPP PR PRN
[2019-02-02 00:24] LABS: HEMOGLOBIN A1C 6.1 % (4.2-6.3)
[2019-02-02] MEDS: SODIUM CHLORIDE FLUSH 10ML SYR IVF SCH ×3 (00:47→20:21)
[2019-02-02 00:48] VITALS: BP 107/67
[2019-02-02] MEDS: ALBUTEROL/IPRATROPIUM 2.5MG/0.5MG, 3 ML NPPB SCH ×6 (02:20→22:30)
[2019-02-02 05:08] LABS: BASOPHILS % (AUTO) 0 % (0-1); EOSINOPHILS # (AUTO) 0.01 x10^3/uL (0-0.4); EOSINOPHILS % (AUTO) 0 % (1-7); LYMPHOCYTES # (AUTO) 0.48 x10^3/uL (1-3.4); LYMPHOCYTES % (AUTO) 6 % (22-44); MD NO; MEAN CORPUSCULAR HEMOGLOBIN 30.8 pg (27.5-34.5); MEAN CORPUSCULAR VOLUME 93.5 fL (81-97); MEAN PLATELET VOLUME 9.2 fL (7.4-10.4); MONOCYTES # (AUTO) 0.03 x10^3/uL (0.2-0.8); MONOCYTES % (AUTO) 0 % (2-9); NEUTROPHILS # (AUTO) 7.62 x10^3/uL (1.8-6.8); NEUTROPHILS % (AUTO) 94 % (42-75); PLATELET COUNT 266 x10^3/uL (130-400); RED BLOOD COUNT 5.19 x10^6/uL (4.38-5.82); RED CELL DISTRIBUTION WIDTH 14.4 % (9.4-14.8)
[2019-02-02] MEDS: methylPREDNISolone SOD SUCC 125 MG/2 ML IVPush SCH ×4 (05:22→23:43)
[2019-02-02] MEDS: HEPARIN 5,000 UNITS/ML, 1ML SQ SCH ×3 (05:23→20:21)
[2019-02-02 05:26] LABS: CHLORIDE 109 mmol/L (98-107)
[2019-02-02 05:34] LABS: ALANINE AMINOTRANSFERASE 19 U/L (12-78); ALBUMIN 3.4 g/dL (3.4-5.0); ALKALINE PHOSPHATASE 81 U/L (45-117); ANION GAP 3 mmol/L (5-15); BILIRUBIN,TOTAL 0.2 mg/dL (0.2-1.0); CALCIUM 8.6 mg/dL (8.5-10.1); CREATININE 0.91 mg/dL (0.7-1.3); TOTAL PROTEIN 6.6 g/dL (6.4-8.2)
[2019-02-02] MEDS: BUDESONIDE 0.5 MG/2 ML INHA INH SCH ×2 (06:55→19:05)
[2019-02-02 07:18] VITALS: BP 118/75
[2019-02-02] MEDS: SENNA/DOCUSATE TABLET PO SCH (08:54)
[2019-02-02] MEDS ORDERED: TEMPLATE NON-FORMULARY MED. (Umeclidinium Brm/Vilanterol Tr (Anoro Ellipta 62.5-25 Mcg Inh INH SCH (09:00)
[2019-02-02] MEDS ORDERED: NITROGLYCERIN 0.4 MG BOTTLE (25 TABS) SL PRN (09:00)
[2019-02-02] MEDS ORDERED: NITROGLYCERIN 0.4 MG BOTTLE (25 TABS) SL ONE (09:02)
[2019-02-02] MEDS ORDERED: ASPIRIN 325 MG TABLET EC PO ONE (09:30)
[2019-02-02 10:16] LABS: CHOLESTEROL, TOTAL 214 mg/dL (140-239)
[2019-02-02 10:19] LABS: CHOL/HDL RATIO 6.5; HDL CHOL % 15 % (26-37); HDL CHOLESTEROL (DIRECT) 33 mg/dL (40-60); LDL CHOLESTEROL,CALCULATED 159 mg/dL (54-169); LDL/HDL RATIO 4.8 (0.5-3.0); TRIGLYCERIDES 110 mg/dL (50-200); TROPONIN I < 0.015 ng/mL (0.000-0.045); VLDL CHOLESTEROL 22 mg/dL (0-25)
[2019-02-02] MEDS: ACETAMINOPHEN 325 MG TABLET PO PRN ×3 (10:51→20:31)
[2019-02-02 13:29] VITALS: BP 103/66
[2019-02-02] MEDS ORDERED: ALBUTEROL SULFATE 2.5 MG/3 ML NPPB PRN (16:30)
[2019-02-02 19:07] VITALS: BP 130/61
[2019-02-02] MEDS: ATORVASTATIN 40 MG TABLET PO SCH (20:21)
[2019-02-03] MEDS: ALBUTEROL/IPRATROPIUM 2.5MG/0.5MG, 3 ML NPPB SCH ×6 (02:05→22:45)
[2019-02-03 02:44] VITALS: BP 115/70
[2019-02-03 04:58] LABS: BASOPHILS # (AUTO) 0.26 x10^3/uL (0-0.1); BASOPHILS % (AUTO) 2 % (0-1); EOSINOPHILS % (AUTO) 0 % (1-7); LYMPHOCYTES # (AUTO) 0.54 x10^3/uL (1-3.4); LYMPHOCYTES % (AUTO) 3 % (22-44); MD NO; MEAN CORPUSCULAR HEMOGLOBIN 30.7 pg (27.5-34.5); MEAN CORPUSCULAR VOLUME 93.2 fL (81-97); MEAN PLATELET VOLUME 9.2 fL (7.4-10.4); MONOCYTES # (AUTO) 0.52 x10^3/uL (0.2-0.8); MONOCYTES % (AUTO) 3 % (2-9); NEUTROPHILS # (AUTO) 14.37 x10^3/uL (1.8-6.8); NEUTROPHILS % (AUTO) 92 % (42-75); PLATELET COUNT 287 x10^3/uL (130-400); RED BLOOD COUNT 4.92 x10^6/uL (4.38-5.82); RED CELL DISTRIBUTION WIDTH 14.6 % (9.4-14.8)
[2019-02-03 05:08] LABS: ANION GAP 5 mmol/L (5-15); CALCIUM 9.1 mg/dL (8.5-10.1); CHLORIDE 109 mmol/L (98-107)
[2019-02-03] MEDS: HEPARIN 5,000 UNITS/ML, 1ML SQ SCH ×3 (05:42→21:23)
[2019-02-03] MEDS: methylPREDNISolone SOD SUCC 125 MG/2 ML IVPush SCH ×4 (05:42→23:13)
[2019-02-03] MEDS: ASPIRIN 81 MG TABLET EC PO SCH (05:44)
[2019-02-03] MEDS: BUDESONIDE 0.5 MG/2 ML INHA INH SCH ×2 (06:50→22:40)
[2019-02-03 06:52] VITALS: BP 103/60
[2019-02-03] MEDS: SENNA/DOCUSATE TABLET PO SCH (08:09)
[2019-02-03] MEDS: SODIUM CHLORIDE FLUSH 10ML SYR IVF SCH ×2 (08:09→21:23)
[2019-02-03] MEDS: LORATADINE 10 MG TABLET PO SCH (08:25)
[2019-02-03] MEDS ORDERED: REGADENOSON 0.4 MG/5 ML SYRINGE ONE (08:52)
[2019-02-03 13:34] VITALS: BP 134/66
[2019-02-03] MEDS: POLYETHYLENE GLYCOL 17 GM PACKET PO PRN (17:28)
[2019-02-03 20:29] VITALS: BP 133/76
[2019-02-03] MEDS: ATORVASTATIN 40 MG TABLET PO SCH (21:23)
[2019-02-03] MEDS: ACETAMINOPHEN 325 MG TABLET PO PRN (23:17)
[2019-02-04 00:36] VITALS: BP 105/67
[2019-02-04] MEDS: ALBUTEROL/IPRATROPIUM 2.5MG/0.5MG, 3 ML NPPB SCH ×6 (02:45→22:00)
[2019-02-04] MEDS: methylPREDNISolone SOD SUCC 125 MG/2 ML IVPush SCH ×4 (05:48→22:00)
[2019-02-04] MEDS: HEPARIN 5,000 UNITS/ML, 1ML SQ SCH ×3 (05:49→22:00)
[2019-02-04] MEDS: ASPIRIN 81 MG TABLET EC PO SCH (05:49)
[2019-02-04] MEDS: ACETAMINOPHEN 325 MG TABLET PO PRN ×2 (05:58→15:24)
[2019-02-04] MEDS: BUDESONIDE 0.5 MG/2 ML INHA INH SCH ×2 (06:16→19:49)
[2019-02-04 06:35] VITALS: BP 110/58
[2019-02-04] MEDS: SENNA/DOCUSATE TABLET PO SCH (09:20)
[2019-02-04] MEDS: LORATADINE 10 MG TABLET PO SCH (09:20)
[2019-02-04] MEDS: SODIUM CHLORIDE FLUSH 10ML SYR IVF SCH ×2 (09:21→22:01)
[2019-02-04 13:50] VITALS: BP 127/66
[2019-02-04] MEDS: POLYETHYLENE GLYCOL 17 GM PACKET PO PRN (15:24)
[2019-02-04 19:44] VITALS: BP 107/58
[2019-02-04] MEDS: ATORVASTATIN 40 MG TABLET PO SCH (22:00)
[2019-02-05] MEDS: ALBUTEROL/IPRATROPIUM 2.5MG/0.5MG, 3 ML NPPB SCH ×7 (02:00→22:00)
[2019-02-05 02:03] VITALS: BP 110/60
[2019-02-05] MEDS: ASPIRIN 81 MG TABLET EC PO SCH (05:45)
[2019-02-05] MEDS: HEPARIN 5,000 UNITS/ML, 1ML SQ SCH ×3 (05:45→23:27)
[2019-02-05] MEDS: methylPREDNISolone SOD SUCC 125 MG/2 ML IVPush SCH ×4 (05:45→23:27)
[2019-02-05] MEDS: BUDESONIDE 0.5 MG/2 ML INHA INH SCH ×2 (08:52→20:27)
[2019-02-05 09:00] VITALS: BP 122/69
[2019-02-05] MEDS: LORATADINE 10 MG TABLET PO SCH (09:22)
[2019-02-05] MEDS: DOXYCYCLINE 100MG TABLET PO SCH ×2 (09:22→20:34)
[2019-02-05] MEDS: SENNA/DOCUSATE TABLET PO SCH (09:23)
[2019-02-05] MEDS: SODIUM CHLORIDE FLUSH 10ML SYR IVF SCH ×2 (09:30→20:34)
[2019-02-05 13:35] VITALS: BP 117/64
[2019-02-05] MEDS: POLYETHYLENE GLYCOL 17 GM PACKET PO PRN (17:41)
[2019-02-05 19:58] VITALS: BP 102/61
[2019-02-05] MEDS: ATORVASTATIN 40 MG TABLET PO SCH (20:34)
[2019-02-06 01:05] VITALS: BP 110/67
[2019-02-06] MEDS: ALBUTEROL/IPRATROPIUM 2.5MG/0.5MG, 3 ML NPPB SCH ×2 (02:00→06:30)
[2019-02-06] MEDS: ASPIRIN 81 MG TABLET EC PO SCH (05:10)
[2019-02-06] MEDS: methylPREDNISolone SOD SUCC 125 MG/2 ML IVPush SCH ×2 (05:10→11:53)
[2019-02-06] MEDS: BUDESONIDE 0.5 MG/2 ML INHA INH SCH (06:30)
[2019-02-06] MEDS: SODIUM CHLORIDE FLUSH 10ML SYR IVF SCH (08:09)
[2019-02-06] MEDS: HEPARIN 5,000 UNITS/ML, 1ML SQ SCH (08:09)
[2019-02-06] MEDS: SENNA/DOCUSATE TABLET PO SCH (08:09)
[2019-02-06] MEDS: LORATADINE 10 MG TABLET PO SCH (08:09)
[2019-02-06] MEDS: DOXYCYCLINE 100MG TABLET PO SCH (08:09)
[2019-02-06 09:09] VITALS: BP 112/69
[2019-02-06] MEDS ORDERED: ALBUTEROL/IPRATROPIUM 2.5MG/0.5MG, 3 ML NPPB SCH (10:00)
[2019-02-06] MEDS ORDERED: ATOR40TA78 PO (11:15)
[2019-02-06] MEDS ORDERED: ASPI81TA45 PO (11:15)
[2019-02-06] MEDS ORDERED: DOXY100T10 PO (11:15)
[2019-02-06] MEDS ORDERED: METH4TAB2 PO (11:15)
[2019-02-06] MEDS ORDERED: ALBU8.5H8 INH (11:15)
[2019-02-06 12:48] VITALS: BP 120/73
== END 2019-02-06 13:59 | disposition home or self-care (01) | DRG 189 ==
LOC: ED 22:53 → EDIP 23:29 → 4WST 02-02 00:40 → DCLOUNGE 02-06 13:43
PROVIDERS: ADMIT Family Medicine; ATTEND Family Medicine
PROC: 5A09357 Assistance with Respiratory Ventilation, Less than 24 Consecutive Hours, Continuous Positive Airway Pressure (ICD-10-PCS; principal; 2019-01-31)
PROC: 5A09357 Assistance with Respiratory Ventilation, Less than 24 Consecutive Hours, Continuous Positive Airway Pressure (ICD-10-PCS; 2019-02-02)
PROC: 5A09357 Assistance with Respiratory Ventilation, Less than 24 Consecutive Hours, Continuous Positive Airway Pressure (ICD-10-PCS; 2019-02-03)
DX: J96.21 Acute and chronic respiratory failure with hypoxia (principal); E11.9 Type 2 diabetes mellitus without complications; I25.10 Atherosclerotic heart disease of native coronary artery without angina pectoris; E66.9 Obesity, unspecified; E78.00 Pure hypercholesterolemia, unspecified; E78.5 Hyperlipidemia, unspecified; I49.3 Ventricular premature depolarization; J43.9 Emphysema, unspecified; J96.22 Acute and chronic respiratory failure with hypercapnia; F32.9 Major depressive disorder, single episode, unspecified; I10 Essential (primary) hypertension; I25.2 Old myocardial infarction; Z68.30 Body mass index [BMI] 30.0-30.9, adult; Z87.01 Personal history of pneumonia (recurrent); Z79.82 Long term (current) use of aspirin; Z80.9 Family history of malignant neoplasm, unspecified; Z87.891 Personal history of nicotine dependence; Z91.14 Patient's other noncompliance with medication regimen; Z95.5 Presence of coronary angioplasty implant and graft; Z99.81 Dependence on supplemental oxygen
CPT/HCPCS: 36415; 36600; 71045; 78452; 80048; 80053; 80061; 82803; 83036; 83605; 83735; 83880; 84145; 84484; 85025; 85610; 85730; 87040; 93005; 93017; 93306; 94640; 94660; 96374; G0378; J1644; J2405; J2785; J7613; J7620; J7626; A9502; C9898; J2930; J3475; J7030

== ENCOUNTER 2019-03-09 01:09 | Inpatient (IN) | payer MEDICARE, MEDICAID ==
[~2019-03-09] VITALS: Ht 165.1 cm; Wt 88.2 kg
[~2019-03-09 01:09] MED LIST changes: +ASPI81TA45 PO
[2019-03-09] MEDS ORDERED: ALBUTEROL 0.5%, 20ML ONE (01:14)
--- NOTE | 2019-03-09 01:20 | NUR ---
BIB [facility] W/ CO INCREASED WOB/SOB. RR 30'S UPON ARRIVAL; PT COOL/DIAPHORETIC PT REFUSING INTUBATION UPON ARRIVAL. DISCUSSION WITH ERP AND PT REGARDING RESPIRATORY ARREST AND POSSIBILITY OF . PT STATES "JUST LET ME GO". BP/SPO2/ECG MONITORING IN PLACE. RT AT BEDSIDE UPON ARRIVAL, PT PLACED ON BIPAP W/ IMPROVEMENT IN WOB. SAMEER MELTON AT BEDSIDE ATTEMPTING IV PLACEMENT.
[2019-03-09] MEDS ORDERED: methylPREDNISolone SOD SUCC 125 MG/2 ML ONE (01:24)
[2019-03-09] MEDS ORDERED: LORazepam 2 MG/ML, 1ML ONE (01:29)
[2019-03-09] MEDS ORDERED: SODIUM CHLORIDE FLUSH 10ML SYR IVF ONE (01:30)
[2019-03-09] MEDS ORDERED: methylPREDNISolone SOD SUCC 125 MG/2 ML IVP ONE (01:30)
[2019-03-09] MEDS ORDERED: ALBUTEROL/IPRATROPIUM 2.5MG/0.5MG, 3 ML NPPB SCH (01:30)
[2019-03-09 01:32] LABS: MEAN CORPUSCULAR HEMOGLOBIN 29.9 pg (27.5-34.5); MEAN CORPUSCULAR HGB CONC 32.6 g/dL (33.2-36.2); MEAN CORPUSCULAR VOLUME 91.7 fL (81-97); PLATELET COUNT 405 x10^3/uL (130-400); RED CELL DISTRIBUTION WIDTH 14.8 % (9.4-14.8)
--- NOTE | 2019-03-09 01:32 | NUR ---
PT MEDICATED PER VERBAL ORDER FROM ERP FOR DISCOMFORT/AGGITATION.
[2019-03-09 01:40] LABS: ALANINE AMINOTRANSFERASE 31 U/L (12-78); ANION GAP 6 mmol/L (5-15); CALCIUM 9.5 mg/dL (8.5-10.1); CHLORIDE 104 mmol/L (98-107); CREATININE 1.43 mg/dL (0.7-1.3)
[2019-03-09] MEDS ORDERED: ONDANSETRON 2MG/ML, 2ML ONE (01:41)
[2019-03-09 01:44] LABS: ALKALINE PHOSPHATASE 104 U/L (45-117); BILIRUBIN,TOTAL 0.2 mg/dL (0.2-1.0); TROPONIN I 0.058 ng/mL (0.000-0.045)
--- NOTE | 2019-03-09 01:45 | NUR ---
PT W/ EPISODE OF EMESIS X2. MEDICATED PER ERP ORDER W/ ZOFRAN. PT NOW ON VAPOTHERM W/ IMPROVEMENT IN WOB. PT REMAINS PALE BUT REPORTS INCREASED EASE IN BREATHING. RR 24; PT SPEAKING IN 5 WORD SENTENCES.
[2019-03-09] MEDS ORDERED: INHALER (01:51)
[2019-03-09] MEDS ORDERED: ONDANSETRON 2MG/ML, 2ML IVPush PRN (02:00)
[2019-03-09] MEDS ORDERED: ONDANSETRON 2MG/ML, 2ML IVPush ONE (02:00)
[2019-03-09] MEDS ORDERED: FUROSEMIDE 40 MG/4 ML IVPush ONE (02:00)
[2019-03-09] MEDS ORDERED: LORazepam 2 MG/ML, 1ML IVPush ONE (02:00)
[2019-03-09] MEDS ORDERED: NITROGLYCERIN OINT 2%, 1GM TP ONE (02:00)
[2019-03-09] MEDS ORDERED: ASPIRIN 81 MG TABLET CHEW PO ONE (02:00)
--- NOTE | 2019-03-09 02:02 | NUR ---
REPORT TO SAMEER LINN
--- NOTE | 2019-03-09 02:06 | NUR ---
REPORT FROM ADOLFO ESTRELLA ASSUMED CARE OF PT AT THIS TIME, PT IN NAD AT THIS [facility] AT FOR ICU ADNIT OF PT
[2019-03-09 02:07] LABS: BASOPHILS # (AUTO) 0.15 x10^3/uL (0-0.1); BASOPHILS % (AUTO) 1 % (0-1); EOSINOPHILS # (AUTO) 0.01 x10^3/uL (0-0.4); EOSINOPHILS % (AUTO) 0 % (1-7); LYMPHOCYTES # (AUTO) 0.99 x10^3/uL (1-3.4); LYMPHOCYTES % (AUTO) 7 % (22-44); MD SCAN; MONOCYTES # (AUTO) 1.57 x10^3/uL (0.2-0.8); MONOCYTES % (AUTO) 11 % (2-9); NEUTROPHILS # (AUTO) 11.73 x10^3/uL (1.8-6.8); NEUTROPHILS % (AUTO) 81 % (42-75)
[2019-03-09] MEDS ORDERED: ALBUTEROL/IPRATROPIUM 2.5MG/0.5MG, 3 ML HHN PRN (02:30)
[2019-03-09] MEDS ORDERED: ALBUTEROL/IPRATROPIUM 2.5MG/0.5MG, 3 ML NPPB PRN (02:30)
[2019-03-09] MEDS: ALBUTEROL/IPRATROPIUM 2.5MG/0.5MG, 3 ML NPPB SCH ×6 (02:30→22:11)
--- NOTE | 2019-03-09 02:34 | NUR ---
REPORT TO FAMILIA PT TO ICU WITH RN AND TECH
[2019-03-09] MEDS: AZITHROMYCIN 500 MG in SODIUM CHLORIDE 0.9% 250 ML IV SCH (03:51)
[2019-03-09] MEDS: ASPIRIN 81 MG TABLET EC PO SCH (04:09)
[2019-03-09 04:30] VITALS: BP 128/69
[2019-03-09] MEDS: ENOXAPARIN 40 MG/0.4 ML SQ SCH (05:26)
[2019-03-09] MEDS: CEFTRIAXONE PMX 2GM/50ML 50 ML IV SCH (06:55)
[2019-03-09] MEDS: methylPREDNISolone SOD SUCC 40 MG/ML IV SCH ×3 (09:08→20:33)
[2019-03-09 09:09] LABS: TROPONIN I 0.034 ng/mL (0.000-0.045)
[2019-03-09] MEDS: ACETAMINOPHEN 325 MG TABLET PO PRN ×3 (09:25→18:24)
[2019-03-09] MEDS: ATORVASTATIN 40 MG TABLET PO SCH (20:32)
[2019-03-10] MEDS: ACETAMINOPHEN 325 MG TABLET PO PRN ×3 (00:25→19:59)
[2019-03-10] MEDS: AZITHROMYCIN 500 MG in SODIUM CHLORIDE 0.9% 250 ML IV SCH (02:39)
[2019-03-10] MEDS: ALBUTEROL/IPRATROPIUM 2.5MG/0.5MG, 3 ML NPPB SCH ×7 (03:20→22:16)
[2019-03-10] MEDS: methylPREDNISolone SOD SUCC 40 MG/ML IV SCH ×4 (04:34→21:27)
[2019-03-10] MEDS: ENOXAPARIN 40 MG/0.4 ML SQ SCH (04:35)
[2019-03-10 05:30] LABS: MEAN CORPUSCULAR HEMOGLOBIN 28.8 pg (27.5-34.5); MEAN CORPUSCULAR HGB CONC 31.2 g/dL (33.2-36.2); MEAN CORPUSCULAR VOLUME 92.3 fL (81-97); PLATELET COUNT 330 x10^3/uL (130-400); RED BLOOD COUNT 5.09 x10^6/uL (4.38-5.82); RED CELL DISTRIBUTION WIDTH 14.8 % (9.4-14.8)
[2019-03-10 05:32] LABS: ANION GAP 3 mmol/L (5-15); CALCIUM 8.8 mg/dL (8.5-10.1); CHLORIDE 105 mmol/L (98-107); CREATININE 0.93 mg/dL (0.7-1.3)
[2019-03-10 06:02] LABS: MD YES
[2019-03-10 06:03] LABS: LYMPH#(MANUAL) 1.22 x10^3/uL (1-3.4); LYMPHS% (MANUAL) 9 % (22-44); MONOS#(MANUAL) 1.09 x10^3/uL (0.3-2.7); MONOS% (MANUAL) 8 % (2-9); SEG#(MANUAL) 11.29 x10^3/uL (1.8-6.8); SEGS% (MANUAL) 83 % (42-75)
[2019-03-10 06:04] LABS: <PLATELET ESTIMATE> ADEQUATE; <RBC MORPHOLOGY> NORMAL
[2019-03-10 06:05] LABS: LARGE PLATELETS 1+
[2019-03-10] MEDS: CEFTRIAXONE PMX 2GM/50ML 50 ML IV SCH (06:39)
[2019-03-10] MEDS: ASPIRIN 81 MG TABLET EC PO SCH (06:39)
[2019-03-10] MEDS: BUDESONIDE 0.5 MG/2 ML INHA INH SCH ×2 (10:45→19:18)
[2019-03-10] MEDS ORDERED: methylPREDNISolone SOD SUCC 125 MG/2 ML IVPush STA (11:34)
[2019-03-10] MEDS ORDERED: MAGNESIUM SULFATE PMX 2GM/50ML 50 ML IV STA (11:36)
[2019-03-10] MEDS ORDERED: FUROSEMIDE 20 MG/2 ML IV STA (11:36)
[2019-03-10] MEDS ORDERED: LORazepam INTENSOL 2 MG/ML PO STA (11:37)
[2019-03-10] MEDS: DEXMEDETOMIDINE 200 MCG in SODIUM CHLORIDE 0.9% 48 ML IV PRN ×2 (11:47→21:27)
[2019-03-10] MEDS: INSULIN LISPRO 100 UNITS/ML, PEN SQ-INSULIN SCH ×3 (11:48→21:00)
[2019-03-10] MEDS ORDERED: LORazepam 2 MG/ML, 1ML IVPush ONE (12:00)
[2019-03-10] MEDS: ATORVASTATIN 40 MG TABLET PO SCH (21:27)
[2019-03-11] MEDS: AZITHROMYCIN 500 MG in SODIUM CHLORIDE 0.9% 250 ML IV SCH (02:26)
[2019-03-11] MEDS: DEXMEDETOMIDINE 200 MCG in SODIUM CHLORIDE 0.9% 48 ML IV PRN (02:42)
[2019-03-11] MEDS: ACETAMINOPHEN 325 MG TABLET PO PRN ×2 (03:00→18:30)
[2019-03-11] MEDS: ALBUTEROL/IPRATROPIUM 2.5MG/0.5MG, 3 ML NPPB SCH ×6 (03:23→22:05)
[2019-03-11] MEDS: methylPREDNISolone SOD SUCC 40 MG/ML IV SCH ×3 (04:01→19:41)
[2019-03-11] MEDS: ENOXAPARIN 40 MG/0.4 ML SQ SCH (04:01)
[2019-03-11] MEDS: CEFTRIAXONE PMX 2GM/50ML 50 ML IV SCH (06:16)
[2019-03-11] MEDS: ASPIRIN 81 MG TABLET EC PO SCH (06:17)
[2019-03-11] MEDS: BUDESONIDE 0.5 MG/2 ML INHA INH SCH ×2 (07:29→20:19)
[2019-03-11] MEDS: INSULIN LISPRO 100 UNITS/ML, PEN SQ-INSULIN SCH ×4 (07:46→20:55)
[2019-03-11 13:41] LABS: TROPONIN I < 0.015 ng/mL (0.000-0.045)
[2019-03-11 15:00] LABS: CLOSTRIDIUM DIFFICILE ANTIGEN NEGATIVE; CLOSTRIDIUM DIFFICILE TOXIN NEGATIVE (Negative)
[2019-03-11] MEDS ORDERED: FUROSEMIDE 20 MG/2 ML IV ONE (17:00)
[2019-03-11] MEDS: ATORVASTATIN 40 MG TABLET PO SCH (20:52)
[2019-03-11] MEDS: CEFUROXIME 500 MG TABLET PO SCH (20:52)
[2019-03-12] MEDS: methylPREDNISolone SOD SUCC 40 MG/ML IV SCH (02:17)
[2019-03-12] MEDS: ALBUTEROL/IPRATROPIUM 2.5MG/0.5MG, 3 ML NPPB SCH ×6 (02:49→22:49)
[2019-03-12] MEDS: ENOXAPARIN 40 MG/0.4 ML SQ SCH (04:35)
[2019-03-12] MEDS: ASPIRIN 81 MG TABLET EC PO SCH (06:18)
[2019-03-12] MEDS: ACETAMINOPHEN 325 MG TABLET PO PRN (06:24)
[2019-03-12] MEDS: BUDESONIDE 0.5 MG/2 ML INHA INH SCH ×2 (06:42→21:00)
[2019-03-12] MEDS: INSULIN LISPRO 100 UNITS/ML, PEN SQ-INSULIN SCH ×4 (07:00→21:45)
[2019-03-12 09:53] LABS: BASOPHILS # (AUTO) 0.08 x10^3/uL (0-0.1); BASOPHILS % (AUTO) 1 % (0-1); EOSINOPHILS % (AUTO) 0 % (1-7); LYMPHOCYTES % (AUTO) 5 % (22-44); MD NO; MEAN CORPUSCULAR HEMOGLOBIN 30.2 pg (27.5-34.5); MEAN CORPUSCULAR HGB CONC 32.9 g/dL (33.2-36.2); MEAN CORPUSCULAR VOLUME 91.8 fL (81-97); MEAN PLATELET VOLUME 9.1 fL (7.4-10.4); MONOCYTES # (AUTO) 0.74 x10^3/uL (0.2-0.8); MONOCYTES % (AUTO) 5 % (2-9); NEUTROPHILS % (AUTO) 89 % (42-75); PLATELET COUNT 316 x10^3/uL (130-400); RED BLOOD COUNT 5.16 x10^6/uL (4.38-5.82); RED CELL DISTRIBUTION WIDTH 14.6 % (9.4-14.8)
[2019-03-12 10:03] LABS: ALANINE AMINOTRANSFERASE 34 U/L (12-78); ALBUMIN 3.4 g/dL (3.4-5.0); ANION GAP 6 mmol/L (5-15); CALCIUM 8.7 mg/dL (8.5-10.1); CHLORIDE 103 mmol/L (98-107); CREATININE 0.91 mg/dL (0.7-1.3)
[2019-03-12 10:08] LABS: ALKALINE PHOSPHATASE 60 U/L (45-117); BILIRUBIN,TOTAL 0.3 mg/dL (0.2-1.0); TOTAL PROTEIN 6.5 g/dL (6.4-8.2)
[2019-03-12] MEDS: CEFUROXIME 500 MG TABLET PO SCH ×2 (10:11→21:48)
[2019-03-12] MEDS: methylPREDNISolone SOD SUCC 125 MG/2 ML IV SCH ×3 (10:12→21:48)
[2019-03-12] MEDS: ATORVASTATIN 40 MG TABLET PO SCH (21:48)
[2019-03-13] MEDS: ALBUTEROL/IPRATROPIUM 2.5MG/0.5MG, 3 ML NPPB SCH ×6 (03:00→22:30)
[2019-03-13] MEDS: methylPREDNISolone SOD SUCC 125 MG/2 ML IV SCH ×4 (03:44→20:39)
[2019-03-13] MEDS: ENOXAPARIN 40 MG/0.4 ML SQ SCH (03:49)
[2019-03-13 04:54] LABS: BASOPHILS # (AUTO) 0.15 x10^3/uL (0-0.1); BASOPHILS % (AUTO) 1 % (0-1); EOSINOPHILS # (AUTO) 0.01 x10^3/uL (0-0.4); EOSINOPHILS % (AUTO) 0 % (1-7); LYMPHOCYTES # (AUTO) 0.67 x10^3/uL (1-3.4); LYMPHOCYTES % (AUTO) 4 % (22-44); MD NO; MEAN CORPUSCULAR HEMOGLOBIN 30.1 pg (27.5-34.5); MEAN CORPUSCULAR HGB CONC 32.9 g/dL (33.2-36.2); MEAN CORPUSCULAR VOLUME 91.4 fL (81-97); MEAN PLATELET VOLUME 9.4 fL (7.4-10.4); MONOCYTES # (AUTO) 0.33 x10^3/uL (0.2-0.8); MONOCYTES % (AUTO) 2 % (2-9); NEUTROPHILS # (AUTO) 14.08 x10^3/uL (1.8-6.8); NEUTROPHILS % (AUTO) 92 % (42-75); PLATELET COUNT 354 x10^3/uL (130-400); RED BLOOD COUNT 5.44 x10^6/uL (4.38-5.82); RED CELL DISTRIBUTION WIDTH 14.8 % (9.4-14.8)
[2019-03-13] MEDS: ASPIRIN 81 MG TABLET EC PO SCH (05:07)
[2019-03-13 05:09] LABS: ANION GAP 5 mmol/L (5-15); CALCIUM 8.6 mg/dL (8.5-10.1); CHLORIDE 103 mmol/L (98-107)
[2019-03-13] MEDS: INSULIN LISPRO 100 UNITS/ML, PEN SQ-INSULIN SCH ×4 (07:00→20:52)
[2019-03-13] MEDS: CEFUROXIME 500 MG TABLET PO SCH ×2 (08:02→20:39)
[2019-03-13] MEDS ORDERED: FUROSEMIDE 20 MG/2 ML IV ONE (09:00)
[2019-03-13] MEDS: BUDESONIDE 0.5 MG/2 ML INHA INH SCH ×2 (09:00→18:32)
[2019-03-13] MEDS: ATORVASTATIN 40 MG TABLET PO SCH (20:39)
[2019-03-14 01:13] VITALS: BP 127/75
[2019-03-14] MEDS: ENOXAPARIN 40 MG/0.4 ML SQ SCH (03:21)
[2019-03-14] MEDS: methylPREDNISolone SOD SUCC 125 MG/2 ML IV SCH ×3 (03:21→17:44)
[2019-03-14 05:43] LABS: BASOPHILS # (AUTO) 0.08 x10^3/uL (0-0.1); BASOPHILS % (AUTO) 1 % (0-1); EOSINOPHILS % (AUTO) 0 % (1-7); LYMPHOCYTES # (AUTO) 0.66 x10^3/uL (1-3.4); LYMPHOCYTES % (AUTO) 4 % (22-44); MD NO; MEAN CORPUSCULAR HEMOGLOBIN 29.8 pg (27.5-34.5); MEAN CORPUSCULAR HGB CONC 32.5 g/dL (33.2-36.2); MEAN CORPUSCULAR VOLUME 91.6 fL (81-97); MEAN PLATELET VOLUME 9.8 fL (7.4-10.4); MONOCYTES % (AUTO) 2 % (2-9); NEUTROPHILS # (AUTO) 15.28 x10^3/uL (1.8-6.8); NEUTROPHILS % (AUTO) 94 % (42-75); PLATELET COUNT 333 x10^3/uL (130-400); RED BLOOD COUNT 5.56 x10^6/uL (4.38-5.82); RED CELL DISTRIBUTION WIDTH 14.5 % (9.4-14.8)
[2019-03-14 05:44] LABS: CHLORIDE 106 mmol/L (98-107)
[2019-03-14 05:50] LABS: ALANINE AMINOTRANSFERASE 49 U/L (12-78); ALBUMIN 3.2 g/dL (3.4-5.0); ALKALINE PHOSPHATASE 60 U/L (45-117); ANION GAP 4 mmol/L (5-15); BILIRUBIN,TOTAL 0.3 mg/dL (0.2-1.0); CALCIUM 8.5 mg/dL (8.5-10.1); CREATININE 0.85 mg/dL (0.7-1.3); TOTAL PROTEIN 6.1 g/dL (6.4-8.2)
[2019-03-14] MEDS: ALBUTEROL/IPRATROPIUM 2.5MG/0.5MG, 3 ML NPPB SCH ×4 (06:00→20:57)
[2019-03-14] MEDS: ASPIRIN 81 MG TABLET EC PO SCH (06:04)
[2019-03-14 06:43] VITALS: BP 116/77
[2019-03-14] MEDS: INSULIN LISPRO 100 UNITS/ML, PEN SQ-INSULIN SCH ×4 (07:00→20:53)
[2019-03-14] MEDS: BUDESONIDE 0.5 MG/2 ML INHA INH SCH ×3 (09:00→20:57)
[2019-03-14] MEDS: CEFUROXIME 500 MG TABLET PO SCH (09:39)
[2019-03-14 13:36] VITALS: BP 118/79
[2019-03-14 19:30] VITALS: BP 150/79
[2019-03-14] MEDS: ATORVASTATIN 40 MG TABLET PO SCH (20:50)
[2019-03-15 00:46] VITALS: BP 128/74
[2019-03-15] MEDS: methylPREDNISolone SOD SUCC 125 MG/2 ML IV SCH ×3 (01:17→16:32)
[2019-03-15] MEDS: ENOXAPARIN 40 MG/0.4 ML SQ SCH (03:40)
[2019-03-15 05:24] LABS: MEAN CORPUSCULAR HGB CONC 32.5 g/dL (33.2-36.2); MEAN CORPUSCULAR VOLUME 92.4 fL (81-97); MEAN PLATELET VOLUME 9.8 fL (7.4-10.4); PLATELET COUNT 291 x10^3/uL (130-400); RED BLOOD COUNT 5.14 x10^6/uL (4.38-5.82); RED CELL DISTRIBUTION WIDTH 14.8 % (9.4-14.8)
[2019-03-15 05:38] LABS: ANION GAP 6 mmol/L (5-15); CALCIUM 8.4 mg/dL (8.5-10.1); CHLORIDE 105 mmol/L (98-107); CREATININE 0.86 mg/dL (0.7-1.3)
[2019-03-15] MEDS: ASPIRIN 81 MG TABLET EC PO SCH (06:06)
[2019-03-15 06:14] LABS: BASOPHILS # (AUTO) 0.23 x10^3/uL (0-0.1); BASOPHILS % (AUTO) 2 % (0-1); EOSINOPHILS % (AUTO) 0 % (1-7); LYMPHOCYTES # (AUTO) 0.47 x10^3/uL (1-3.4); LYMPHOCYTES % (AUTO) 3 % (22-44); MD SCAN; MONOCYTES % (AUTO) 2 % (2-9); NEUTROPHILS % (AUTO) 94 % (42-75)
[2019-03-15] MEDS: ALBUTEROL/IPRATROPIUM 2.5MG/0.5MG, 3 ML NPPB SCH ×3 (07:05→20:56)
[2019-03-15] MEDS: BUDESONIDE 0.5 MG/2 ML INHA INH SCH ×2 (07:05→20:56)
[2019-03-15 09:01] VITALS: BP 129/76
[2019-03-15] MEDS: INSULIN LISPRO 100 UNITS/ML, PEN SQ-INSULIN SCH ×4 (09:27→20:11)
[2019-03-15 15:12] VITALS: BP 113/70
[2019-03-15] MEDS ORDERED: PRED10TA PO (17:01)
[2019-03-15] MEDS: ATORVASTATIN 40 MG TABLET PO SCH (20:10)
[2019-03-15 20:16] VITALS: BP 128/77
[2019-03-16] MEDS: methylPREDNISolone SOD SUCC 125 MG/2 ML IV SCH ×2 (01:15→07:32)
[2019-03-16 02:15] VITALS: BP 125/74
[2019-03-16] MEDS: ENOXAPARIN 40 MG/0.4 ML SQ SCH (04:36)
[2019-03-16] MEDS: ASPIRIN 81 MG TABLET EC PO SCH (05:58)
[2019-03-16] MEDS: INSULIN LISPRO 100 UNITS/ML, PEN SQ-INSULIN SCH (07:33)
[2019-03-16 08:25] VITALS: BP 129/76
[2019-03-16] MEDS: BUDESONIDE 0.5 MG/2 ML INHA INH SCH (09:00)
[2019-03-16] MEDS: ALBUTEROL/IPRATROPIUM 2.5MG/0.5MG, 3 ML NPPB SCH (09:00)
== END 2019-03-16 10:10 | disposition home or self-care (01) | DRG 871 ==
LOC: ED 02:14 → EDIP 02:15 → CCU 02:51 → 4NOR 03-13 23:00 → DCLOUNGE 03-16 09:55
PROVIDERS: ADMIT Internal Medicine; ATTEND Internal Medicine
PROC: 5A09357 Assistance with Respiratory Ventilation, Less than 24 Consecutive Hours, Continuous Positive Airway Pressure (ICD-10-PCS; principal; 2019-03-09)
DX: A41.9 Sepsis, unspecified organism (principal); I21.A1 Myocardial infarction type 2; J96.21 Acute and chronic respiratory failure with hypoxia; J18.1 Lobar pneumonia, unspecified organism; J96.22 Acute and chronic respiratory failure with hypercapnia; I50.43 Acute on chronic combined systolic (congestive) and diastolic (congestive) heart failure; I11.0 Hypertensive heart disease with heart failure; E11.9 Type 2 diabetes mellitus without complications; E66.9 Obesity, unspecified; E78.5 Hyperlipidemia, unspecified; F12.10 Cannabis abuse, uncomplicated; F41.9 Anxiety disorder, unspecified; I25.10 Atherosclerotic heart disease of native coronary artery without angina pectoris; Z68.32 Body mass index [BMI] 32.0-32.9, adult; J43.9 Emphysema, unspecified; T38.0X5A Adverse effect of glucocorticoids and synthetic analogues, initial encounter; Y92.89 Other specified places as the place of occurrence of the external cause; Z79.82 Long term (current) use of aspirin; Z80.9 Family history of malignant neoplasm, unspecified; Z87.891 Personal history of nicotine dependence; Z91.19 Patient's noncompliance with other medical treatment and regimen; Z95.5 Presence of coronary angioplasty implant and graft; Z99.81 Dependence on supplemental oxygen
CPT/HCPCS: 36415; 36600; 71045; 80048; 80053; 82803; 82962; 83605; 83880; 84145; 84484; 85025; 87040; 87081; 87324; 93005; 93308; 93321; 93325; 94640; 94660; 96374; G0378; J0456; J0696; J1650; J1940; J2405; J7620; J7626; J1815; J2060; J2920; J2930; J3475; J7050

== ENCOUNTER 2019-06-17 21:31 | Inpatient (IN) | payer MEDICARE, MEDICAID ==
[~2019-06-17] VITALS: Ht 167.6 cm; Wt 83.9 kg
[2019-06-19 15:48] VITALS: BP 113/63
== END 2019-06-19 19:18 | disposition home or self-care (01) | DRG 189 ==
LOC: ED 23:51 → EDIP 23:59 → 4WST 06-18 00:44
PROVIDERS: ADMIT Internal Medicine; ATTEND Internal Medicine
DX: J96.21 Acute and chronic respiratory failure with hypoxia (principal); J44.1 Chronic obstructive pulmonary disease with (acute) exacerbation; E78.00 Pure hypercholesterolemia, unspecified; E78.5 Hyperlipidemia, unspecified; F12.90 Cannabis use, unspecified, uncomplicated; F17.200 Nicotine dependence, unspecified, uncomplicated; I11.0 Hypertensive heart disease with heart failure; I25.10 Atherosclerotic heart disease of native coronary artery without angina pectoris; I25.2 Old myocardial infarction; I50.9 Heart failure, unspecified; Z66 Do not resuscitate; Z80.9 Family history of malignant neoplasm, unspecified; Z95.5 Presence of coronary angioplasty implant and graft; Z99.81 Dependence on supplemental oxygen
CPT/HCPCS: 36415; 71045; 80053; 83735; 83880; 84484; 85025; 93005; 94640; 94644; 96374; 96375; G0378; J1644; J3480; J7620; J7626; J2930; J7050; J7512

== ENCOUNTER 2019-07-04 00:44 | Inpatient (IN) | payer MEDICARE, MEDICAID ==
[~2019-07-04] VITALS: Ht 177.8 cm; Wt 83.3 kg
[~2019-07-04 00:44] MED LIST changes: +INHALER
--- NOTE | 2019-07-04 00:56 | NUR ---
Pt presents to ed c/o Sob tonight after "my friends put meth in my tea." Coughing up yellow phlegm and coarse lung soundsx4 quadrants. 50% 02 @ home by [facility] and altered. On 2L nc for COPD @ home. 100% on 15 L nrb and A+ox4 in ed. Pt has flight of ideas, but can be redirected. All monitoring applied and ekg accopmplished upon admit to ed.
[2019-07-04] MEDS ORDERED: SODIUM CHLORIDE 0.9% 1,000ML IVBOLUS ONE (01:00)
[2019-07-04] MEDS ORDERED: AZITHROMYCIN 500 MG in SODIUM CHLORIDE 0.9% 250 ML IVPB ONE (01:00)
[2019-07-04] MEDS: PLEASE ENTER ALLERGIES MC SCH ×2 (01:00→02:00)
[2019-07-04] MEDS ORDERED: methylPREDNISolone SOD SUCC 125 MG/2 ML IV ONE (01:00)
[2019-07-04] MEDS ORDERED: CEFTRIAXONE PMX 1GM/50ML 50 ML IVPB ONE (01:00)
[2019-07-04] MEDS ORDERED: CEFTRIAXONE PMX 1GM/50ML 50 ML ONE (01:01)
[2019-07-04] MEDS ORDERED: methylPREDNISolone SOD SUCC 125 MG/2 ML ONE (01:02)
--- NOTE | 2019-07-04 01:05 | NUR ---
Awaiting blood cultures for abx.
[2019-07-04] MEDS ORDERED: ALBUTEROL SULFATE 2.5 MG/3 ML ONE (01:09)
[2019-07-04 01:20] LABS: MEAN CORPUSCULAR HEMOGLOBIN 30.7 pg (27.5-34.5); MEAN CORPUSCULAR HGB CONC 31.8 g/dL (33.2-36.2); MEAN CORPUSCULAR VOLUME 96.5 fL (81-97); MEAN PLATELET VOLUME 9.1 fL (7.4-10.4); PLATELET COUNT 301 x10^3/uL (130-400); RED CELL DISTRIBUTION WIDTH 15.1 % (9.4-14.8)
--- NOTE | 2019-07-04 01:22 | NUR ---
Abx initiated after blood cultures drawn and confirmed in EMR.
[2019-07-04 01:24] LABS: ALANINE AMINOTRANSFERASE 14 U/L (12-78); ALBUMIN 3.3 g/dL (3.4-5.0); ANION GAP 5 mmol/L (5-15); CALCIUM 8.8 mg/dL (8.5-10.1); CHLORIDE 97 mmol/L (98-107); CREATININE 1.06 mg/dL (0.7-1.3)
[2019-07-04 01:29] LABS: ALKALINE PHOSPHATASE 97 U/L (45-117); BILIRUBIN,TOTAL 0.5 mg/dL (0.2-1.0); TOTAL PROTEIN 7.7 g/dL (6.4-8.2)
[2019-07-04 01:31] LABS: TROPONIN I 0.128 ng/mL (0.000-0.045)
[2019-07-04] MEDS ORDERED: PRED10TA14 PO (01:33)
[2019-07-04] MEDS ORDERED: ATOR40TA78 PO (01:33)
[2019-07-04] MEDS ORDERED: ASPI-515 PO (01:33)
[2019-07-04] MEDS: ALBUTEROL SULFATE 2.5 MG/3 ML NPPB SCH ×2 (01:38→01:39)
[2019-07-04] MEDS ORDERED: ASPIRIN 81 MG TABLET CHEW ONE (01:40)
[2019-07-04] MEDS ORDERED: ASPIRIN 325 MG TABLET ONE (01:41)
[2019-07-04 01:52] LABS: BASOPHILS # (AUTO) 0.08 x10^3/uL (0-0.1); BASOPHILS % (AUTO) 0 % (0-1); EOSINOPHILS # (AUTO) 0.01 x10^3/uL (0-0.4); EOSINOPHILS % (AUTO) 0 % (1-7); LYMPHOCYTES # (AUTO) 0.46 x10^3/uL (1-3.4); LYMPHOCYTES % (AUTO) 2 % (22-44); MD SCAN; MONOCYTES # (AUTO) 1.32 x10^3/uL (0.2-0.8); MONOCYTES % (AUTO) 6 % (2-9); NEUTROPHILS # (AUTO) 19.19 x10^3/uL (1.8-6.8); NEUTROPHILS % (AUTO) 91 % (42-75)
[2019-07-04] MEDS ORDERED: ASPIRIN 325 MG TABLET PO ONE (02:00)
--- NOTE | 2019-07-04 02:01 | NUR ---
Pt not tolerating face mask and moved to Opti-flow. Pt tolerating well and sats continue to remain 96%+. Pt frequently coughing now and producing bright yellow/green mucous. aware. Awaiting xr results.
[2019-07-04] MEDS ORDERED: ONDANSETRON ODT 4 MG PO PRN (02:30)
[2019-07-04] MEDS ORDERED: PROMETHAZINE 25 MG/ML, 1ML IM PRN (02:30)
[2019-07-04] MEDS ORDERED: POLYETHYLENE GLYCOL 17 GM PACKET PO PRN (02:30)
[2019-07-04] MEDS ORDERED: hydrALAzine 20 MG/ML, 1ML IVPush PRN (02:30)
[2019-07-04] MEDS ORDERED: DOCUSATE 100 MG CAPSULE PO PRN (02:30)
[2019-07-04] MEDS ORDERED: BISACODYL 10 MG SUPP PR PRN (02:30)
[2019-07-04] MEDS ORDERED: ONDANSETRON 2MG/ML, 2ML IVPush PRN (02:30)
[2019-07-04 02:56] LABS: FREE T4 (FREE THYROXINE) 1.03 ng/dL (0.76-1.46); HEMOGLOBIN A1C 6.5 % (4.2-6.3)
[2019-07-04] MEDS ORDERED: FUROSEMIDE 20 MG/2 ML IV ONE (03:00)
[2019-07-04] MEDS ORDERED: HEPARIN 5,000 UNITS/ML, 1ML ONE (03:05)
[2019-07-04] MEDS ORDERED: FUROSEMIDE 20 MG/2 ML ONE ×2 (03:05→03:19)
[2019-07-04] MEDS ORDERED: LORazepam 2 MG/ML, 1ML IVPush PRN (03:30)
[2019-07-04] MEDS ORDERED: LORazepam 2 MG/ML, 1ML ONE (03:32)
[2019-07-04 04:09] VITALS: BP 126/74
[2019-07-04] MEDS: ALBUTEROL/IPRATROPIUM 2.5MG/0.5MG, 3 ML NPPB SCH ×7 (04:10→23:30)
[2019-07-04 04:46] LABS: TROPONIN I 0.624 ng/mL (0.000-0.045)
[2019-07-04] MEDS: HEPARIN 5,000 UNITS/ML, 1ML SQ SCH ×3 (05:14→20:14)
[2019-07-04] MEDS: methylPREDNISolone SOD SUCC 125 MG/2 ML IVPush SCH ×3 (07:35→20:13)
[2019-07-04 07:44] LABS: TROPONIN I 0.901 ng/mL (0.000-0.045)
[2019-07-04] MEDS: CEFTRIAXONE PMX 2GM/50ML 50 ML IV SCH (10:43)
[2019-07-04] MEDS: BUDESONIDE 0.5 MG/2 ML INHA NPPB SCH ×3 (11:30→18:44)
[2019-07-04] MEDS: ASPIRIN 81 MG TABLET EC PO SCH (11:51)
[2019-07-04] MEDS: HYDROcodone/APAP 5/325 TABLET PO PRN ×2 (12:01→18:38)
[2019-07-04 13:19] LABS: TROPONIN I 0.843 ng/mL (0.000-0.045)
[2019-07-04] MEDS: ATORVASTATIN 40 MG TABLET PO SCH (20:13)
[2019-07-04] MEDS: morphine SULFATE 10 MG/ML, 1ML IVPush PRN (20:14)
[2019-07-04] MEDS: AZITHROMYCIN 500 MG in SODIUM CHLORIDE 0.9% 250 ML IV SCH (22:12)
[2019-07-04] MEDS: GUAIFENESIN ER 600 MG TABLET PO SCH (22:52)
[2019-07-05] MEDS: ALBUTEROL/IPRATROPIUM 2.5MG/0.5MG, 3 ML NPPB SCH ×6 (03:05→22:37)
[2019-07-05] MEDS: methylPREDNISolone SOD SUCC 125 MG/2 ML IVPush SCH (03:25)
[2019-07-05] MEDS: HYDROcodone/APAP 5/325 TABLET PO PRN ×2 (03:25→14:43)
[2019-07-05] MEDS: MINERA CRM, 60GM TP PRN ×2 (03:26→07:00)
[2019-07-05 04:20] LABS: MEAN CORPUSCULAR HEMOGLOBIN 30.9 pg (27.5-34.5); MEAN CORPUSCULAR HGB CONC 31.6 g/dL (33.2-36.2); MEAN CORPUSCULAR VOLUME 97.9 fL (81-97); MEAN PLATELET VOLUME 9.5 fL (7.4-10.4); PLATELET COUNT 307 x10^3/uL (130-400); RED BLOOD COUNT 4.65 x10^6/uL (4.38-5.82); RED CELL DISTRIBUTION WIDTH 14.9 % (9.4-14.8)
[2019-07-05 04:34] LABS: ALANINE AMINOTRANSFERASE 14 U/L (12-78); ALBUMIN 2.6 g/dL (3.4-5.0); ANION GAP 4 mmol/L (5-15); CALCIUM 8.6 mg/dL (8.5-10.1); CHLORIDE 100 mmol/L (98-107); CHOLESTEROL, TOTAL 190 mg/dL (140-239); CREATININE 0.91 mg/dL (0.7-1.3)
[2019-07-05 04:39] LABS: ALKALINE PHOSPHATASE 80 U/L (45-117); BILIRUBIN,TOTAL 0.2 mg/dL (0.2-1.0); CHOL/HDL RATIO 5.1; HDL CHOL % 19 % (26-37); HDL CHOLESTEROL (DIRECT) 37 mg/dL (40-60); LDL CHOLESTEROL,CALCULATED 130 mg/dL (54-169); LDL/HDL RATIO 3.5 (0.5-3.0); TOTAL PROTEIN 6.8 g/dL (6.4-8.2); TRIGLYCERIDES 115 mg/dL (50-200); TROPONIN I 0.371 ng/mL (0.000-0.045); VLDL CHOLESTEROL 23 mg/dL (0-25)
[2019-07-05 04:42] LABS: MD YES
[2019-07-05 04:45] LABS: <PLATELET ESTIMATE> ADEQUATE; <PLT MORPHOLOGY> NORMAL PLT MORPH; <RBC MORPHOLOGY> NORMAL; BAND#(MANUAL) 0.55 x10^3/uL; BANDS%(MANUAL) 3 % (0-7); LYMPH#(MANUAL) 0.73 x10^3/uL (1-3.4); LYMPHS% (MANUAL) 4 % (22-44); MONOS#(MANUAL) 0.55 x10^3/uL (0.3-2.7); MONOS% (MANUAL) 3 % (2-9); SEG#(MANUAL) 16.47 x10^3/uL (1.8-6.8); SEGS% (MANUAL) 90 % (42-75)
[2019-07-05] MEDS: HEPARIN 5,000 UNITS/ML, 1ML SQ SCH ×3 (05:52→21:07)
[2019-07-05] MEDS: GUAIFENESIN ER 600 MG TABLET PO SCH ×2 (07:10→21:07)
[2019-07-05] MEDS: ASPIRIN 81 MG TABLET EC PO SCH (07:10)
[2019-07-05] MEDS: ACETAMINOPHEN 325 MG TABLET PO PRN (07:11)
[2019-07-05] MEDS: BUDESONIDE 0.5 MG/2 ML INHA NPPB SCH ×2 (07:20→22:37)
[2019-07-05 09:00] VITALS: BP 111/64
[2019-07-05] MEDS: CEFTRIAXONE PMX 2GM/50ML 50 ML IV SCH (09:51)
[2019-07-05 20:22] VITALS: BP 116/48
[2019-07-05] MEDS: ATORVASTATIN 40 MG TABLET PO SCH (21:06)
[2019-07-05] MEDS: AZITHROMYCIN 500 MG in SODIUM CHLORIDE 0.9% 250 ML IV SCH (22:27)
[2019-07-06] MEDS: ALBUTEROL/IPRATROPIUM 2.5MG/0.5MG, 3 ML NPPB SCH ×6 (03:30→22:46)
[2019-07-06 04:12] LABS: BASOPHILS # (AUTO) 0.01 x10^3/uL (0-0.1); BASOPHILS % (AUTO) 0 % (0-1); EOSINOPHILS # (AUTO) 0.06 x10^3/uL (0-0.4); EOSINOPHILS % (AUTO) 0 % (1-7); LYMPHOCYTES # (AUTO) 0.75 x10^3/uL (1-3.4); LYMPHOCYTES % (AUTO) 5 % (22-44); MD NO; MEAN CORPUSCULAR HEMOGLOBIN 30.9 pg (27.5-34.5); MEAN CORPUSCULAR HGB CONC 31.9 g/dL (33.2-36.2); MEAN CORPUSCULAR VOLUME 96.9 fL (81-97); MEAN PLATELET VOLUME 9.3 fL (7.4-10.4); MONOCYTES # (AUTO) 0.49 x10^3/uL (0.2-0.8); MONOCYTES % (AUTO) 3 % (2-9); NEUTROPHILS # (AUTO) 14.17 x10^3/uL (1.8-6.8); NEUTROPHILS % (AUTO) 92 % (42-75); PLATELET COUNT 332 x10^3/uL (130-400); RED BLOOD COUNT 4.42 x10^6/uL (4.38-5.82); RED CELL DISTRIBUTION WIDTH 14.6 % (9.4-14.8)
[2019-07-06 04:21] LABS: CALCIUM 8.7 mg/dL (8.5-10.1); CHLORIDE 101 mmol/L (98-107); CREATININE 0.82 mg/dL (0.7-1.3)
[2019-07-06 04:29] LABS: ANION GAP 1 mmol/L (5-15)
[2019-07-06] MEDS: HEPARIN 5,000 UNITS/ML, 1ML SQ SCH ×3 (05:17→21:03)
[2019-07-06] MEDS: GUAIFENESIN ER 600 MG TABLET PO SCH ×2 (08:33→19:34)
[2019-07-06] MEDS: ASPIRIN 81 MG TABLET EC PO SCH (08:33)
[2019-07-06] MEDS: BUDESONIDE 0.5 MG/2 ML INHA NPPB SCH ×2 (09:00→19:25)
[2019-07-06 09:46] VITALS: BP 128/69
[2019-07-06] MEDS: CEFTRIAXONE PMX 2GM/50ML 50 ML IV SCH (12:37)
[2019-07-06 12:58] VITALS: BP 112/72
[2019-07-06 18:42] VITALS: BP 128/79
[2019-07-06] MEDS: ATORVASTATIN 40 MG TABLET PO SCH (19:34)
[2019-07-06] MEDS: HYDROcodone/APAP 5/325 TABLET PO PRN (19:34)
[2019-07-06] MEDS: AZITHROMYCIN 500 MG in SODIUM CHLORIDE 0.9% 250 ML IV SCH (22:39)
[2019-07-07 01:05] VITALS: BP 113/71
[2019-07-07] MEDS: HEPARIN 5,000 UNITS/ML, 1ML SQ SCH ×3 (05:10→20:17)
[2019-07-07] MEDS: HYDROcodone/APAP 5/325 TABLET PO PRN ×2 (05:16→13:06)
[2019-07-07] MEDS: ALBUTEROL/IPRATROPIUM 2.5MG/0.5MG, 3 ML NPPB SCH ×5 (06:00→19:27)
[2019-07-07] MEDS: BUDESONIDE 0.5 MG/2 ML INHA NPPB SCH ×2 (07:22→19:26)
[2019-07-07 08:07] VITALS: BP 130/80
[2019-07-07] MEDS: ACETAMINOPHEN 325 MG TABLET PO PRN ×2 (08:51→17:13)
[2019-07-07] MEDS: ASPIRIN 81 MG TABLET EC PO SCH (08:51)
[2019-07-07] MEDS: GUAIFENESIN ER 600 MG TABLET PO SCH ×2 (08:51→20:17)
[2019-07-07] MEDS: CEFTRIAXONE PMX 2GM/50ML 50 ML IV SCH (11:34)
[2019-07-07 13:10] VITALS: BP 119/75
[2019-07-07 19:56] VITALS: BP 118/63
[2019-07-07] MEDS: ATORVASTATIN 40 MG TABLET PO SCH (20:16)
[2019-07-07] MEDS: AZITHROMYCIN 500 MG in SODIUM CHLORIDE 0.9% 250 ML IV SCH (22:30)
[2019-07-08 01:17] VITALS: BP 137/84
[2019-07-08] MEDS: HYDROcodone/APAP 5/325 TABLET PO PRN (05:21)
[2019-07-08] MEDS: HEPARIN 5,000 UNITS/ML, 1ML SQ SCH ×3 (05:21→20:28)
[2019-07-08] MEDS: ALBUTEROL/IPRATROPIUM 2.5MG/0.5MG, 3 ML NPPB SCH ×4 (07:00→20:00)
[2019-07-08 07:34] VITALS: BP 133/82
[2019-07-08] MEDS: ASPIRIN 81 MG TABLET EC PO SCH (07:46)
[2019-07-08] MEDS: GUAIFENESIN ER 600 MG TABLET PO SCH ×2 (07:46→20:27)
[2019-07-08] MEDS: BUDESONIDE 0.5 MG/2 ML INHA NPPB SCH ×2 (09:00→21:00)
[2019-07-08 12:59] VITALS: BP 111/67
[2019-07-08] MEDS: CEFTRIAXONE PMX 2GM/50ML 50 ML IV SCH (14:09)
[2019-07-08] MEDS ORDERED: ALBUTEROL SULFATE 2.5 MG/3 ML ONE (16:15)
[2019-07-08] MEDS ORDERED: ALBUTEROL SULFATE 2.5 MG/3 ML NPPB PRN (16:30)
[2019-07-08] MEDS: morphine SULFATE 10 MG/ML, 1ML IVPush PRN (17:35)
[2019-07-08 19:52] VITALS: BP 105/65
[2019-07-08] MEDS: ATORVASTATIN 40 MG TABLET PO SCH (20:27)
[2019-07-08] MEDS: AZITHROMYCIN 500 MG in SODIUM CHLORIDE 0.9% 250 ML IV SCH (22:34)
[2019-07-09] MEDS: HEPARIN 5,000 UNITS/ML, 1ML SQ SCH ×2 (06:25→10:54)
[2019-07-09 06:37] VITALS: BP 130/85
[2019-07-09] MEDS: ALBUTEROL/IPRATROPIUM 2.5MG/0.5MG, 3 ML NPPB SCH ×2 (06:45→09:45)
[2019-07-09] MEDS: BUDESONIDE 0.5 MG/2 ML INHA NPPB SCH (09:00)
[2019-07-09] MEDS: GUAIFENESIN ER 600 MG TABLET PO SCH (09:02)
[2019-07-09] MEDS: ASPIRIN 81 MG TABLET EC PO SCH (09:02)
[2019-07-09] MEDS: HYDROcodone/APAP 5/325 TABLET PO PRN (09:07)
[2019-07-09] MEDS ORDERED: AZIT500T PO (09:49)
[2019-07-09] MEDS ORDERED: PRED10TA PO (09:49)
[2019-07-09] MEDS: CEFTRIAXONE PMX 2GM/50ML 50 ML IV SCH (10:50)
== END 2019-07-09 12:30 | disposition home or self-care (01) | DRG 871 ==
LOC: EDBD 00:44 → ED 02:16 → EDIP 02:20 → MERGE 02:20 → CCU 03:02 → 5SO 07-06 08:42 → CCU 07-06 08:44 → 5SO 07-06 09:12 → 3N 07-08 11:38 → DCLOUNGE 07-09 12:30
PROVIDERS: ADMIT Internal Medicine; ATTEND Internal Medicine
DX: A41.9 Sepsis, unspecified organism (principal); I21.4 Non-ST elevation (NSTEMI) myocardial infarction; J18.9 Pneumonia, unspecified organism; J96.21 Acute and chronic respiratory failure with hypoxia; G93.41 Metabolic encephalopathy; J96.22 Acute and chronic respiratory failure with hypercapnia; J44.1 Chronic obstructive pulmonary disease with (acute) exacerbation; E87.2 Acidosis; I50.32 Chronic diastolic (congestive) heart failure; J44.0 Chronic obstructive pulmonary disease with (acute) lower respiratory infection; F32.9 Major depressive disorder, single episode, unspecified; F15.10 Other stimulant abuse, uncomplicated; F12.10 Cannabis abuse, uncomplicated; E78.5 Hyperlipidemia, unspecified; I25.10 Atherosclerotic heart disease of native coronary artery without angina pectoris; E11.9 Type 2 diabetes mellitus without complications; E66.9 Obesity, unspecified; I11.0 Hypertensive heart disease with heart failure; Z99.81 Dependence on supplemental oxygen; Z87.891 Personal history of nicotine dependence; I25.2 Old myocardial infarction; Z95.5 Presence of coronary angioplasty implant and graft; Z90.49 Acquired absence of other specified parts of digestive tract; Z95.818 Presence of other cardiac implants and grafts
CPT/HCPCS: 36415; 36600; 71045; 80048; 80053; 80061; 82803; 82962; 83036; 83605; 83735; 83880; 84439; 84443; 84484; 85025; 87040; 87070; 87081; 87205; 93005; 93306; 94640; 96365; 96375; G0378; J0456; J0696; J1644; J2405; J7613; J7620; J7626; J1940; J2060; J2270; J2930; J7030; J7050; J7512